=== PATIENT | male | born 1960 | race Caucasian/White ===

== ENCOUNTER → 2019-08-23 11:40 | Outpatient (CLI) | payer BC, SELFPAY ==
--- NOTE | 2019-08-23 11:42 | CA_ITS ---
APPROVED REPORT EXAM: Comprehensive 2D, Doppler, and color-flow Echocardiogram [employer]: Penny Silverio RT(R) Ht: 6 ft 0 in Wt: 233lbs BSA: 2.27 BP: 180/100 mmHg Indications: edema, hyperlipidemia, family history of HD 2D Dimensions LVOT 2.06 cm (M/F) 1.5-2.5 M-Mode Dimensions RVDd 3.02 cm (0.9-2.6) LVDd 5.84 cm (3.5-5.7) LVDs 4.35 cm (3.5-5.7) IVSd 1.17 cm (0.6-1.1) PWd 1.25 cm (0.6-1.1) EF (Teich) 49.50% FS 25.50% EDV (Teich) 169.20 mL ESV (Teich) 85.40 mL LV Diastology E/A Ratio 1.25 Mitral Valve MV A Velocity 50.00 (40-130 cm/s) Left Ventricle Left atrium is mildly enlarged, left ventricle is normal size, mild concentric left ventricular hypertrophy, visually estimated ejection fraction 55% with no regional wall motion abnormality, grade 1 diastolic dysfunction seen without tissue Doppler evidence of raise left atrial pressure. Right Ventricle Right atrium and right ventricle are normal size and contractility. Aortic Valve Aortic valve is minimally thickened and fibrosed, there is no aortic stenosis or aortic insufficiency. Mitral Valve Mitral valve is grossly normal, there is mild mitral regurgitation. Tricuspid Valve Tricuspid valve is grossly normal, there is mild tricuspid regurgitation, tricuspid regurgitation jet velocity is inadequate for calculation of the right ventricular systolic pressure. Pulmonic Valve Pulmonic valve is poorly visualized. Great Vessels Aortic root is normal size. Pericardium No significant pericardial effusion noted. Conclusion 1. Mildly enlarged left atrium, normal left ventricular size, mild concentric left ventricular hypertrophy, visually estimated ejection fraction 55% with no regional wall motion abnormality, grade 1 diastolic dysfunction seen without tissue Doppler evidence of raise left atrial pressure. 2. Mild mitral and tricuspid regurgitation. 3. No significant pericardial effusion noted. Electronically signed by : Raymond Amezcua, 08/23/2019 18:43:59
== END ==
PROVIDERS: PCP Family Medicine; Visit Provider Internal Medicine
DX: R60.0 Localized edema (principal); E78.5 Hyperlipidemia, unspecified; Z86.718 Personal history of other venous thrombosis and embolism
CPT/HCPCS: 93306

== ENCOUNTER → 2021-10-28 08:14 | Outpatient (CLI) | payer SELFPAY ==
--- NOTE | 2021-10-28 08:15 | CT_ITS ---
FINAL REPORT TECHNIQUE: Thin section axial images were obtained through the heart and coronary arteries per CT coronary calcium score protocol. This study was performed with techniques to keep radiation doses as low as reasonably achievable (ALARA). Individualized dose reduction techniques using automated exposure control or adjustment of mA and/or kV according to the patient's size were employed. CLINICAL HISTORY: eval for CAD Family history nonsmoker FINDINGS: On the axial images, there is calcification within the left anterior descending coronary artery. This gives a coronary artery calcium score of 97 based on the Agatston scale. This coronary calcium score places the patient within the 48th percentile based on age and gender. The heart is normal in size. There is no pleural or pericardial effusion. Limited evaluation of the lungs reveal no suspicious nodule. IMPRESSION: Calcium score of 97 puts the patient within the 48th percentile. Reviewed, Interpreted and Dictated by Blane Zuluaga III, MD Transcribed by Deena Motta Authenticated and [facility]
== END ==
PROVIDERS: PCP Physician Assistant; Visit Provider Physician Assistant
DX: R00.1 Bradycardia, unspecified (principal); I10 Essential (primary) hypertension; E78.2 Mixed hyperlipidemia; R60.0 Localized edema; Z86.718 Personal history of other venous thrombosis and embolism
CPT/HCPCS: 75571

== ENCOUNTER 2024-06-01 07:49 | Outpatient (CLI) | payer MEDICARE, SELFPAY ==
--- NOTE | 2024-06-01 07:53 | CA_ITS ---
FINAL REPORT CLINICAL HISTORY: post op 2 months follow up to anterior calf DVT COMPARISON: None FINDINGS: DUPLEX VENOUS SONOGRAPHY OF THE RIGHT LOWER EXTREMITY Multiple transverse and longitudinal scans were performed of the femoropopliteal deep venous system, with augmentation and compression maneuvers. HISTORY: Follow-up FINDINGS: Normal phasic flow was noted in the visualized deep venous system. No intraluminal increased echogenicity is noted to suggest thrombus. There is normal compression and augmentation of the venous structures. No abnormal venous collaterals are seen. IMPRESSION: No evidence of deep venous thrombosis of the right lower extremity. Reviewed, Interpreted and Dictated by Patria Rhodes MD Transcribed by Livia Gong Authenticated and [facility]
== END 2024-06-01 23:59 | disposition home or self-care (01) ==
LOC: RT 07:50
PROVIDERS: PCP Family Medicine; Visit Provider Physician Assistant
DX: Z86.718 Personal history of other venous thrombosis and embolism (principal); I10 Essential (primary) hypertension; E78.2 Mixed hyperlipidemia
CPT/HCPCS: 93971

== ENCOUNTER 2024-12-21 12:17 | Outpatient (CLI) | payer MEDICARE, SELFPAY ==
--- OUTSIDE RECORDS SUMMARY | 2024-09-01 05:15 | XMS_ITS | Continuity of Care Document ---
Author Organization [facility] Address [address] [place] [address] Phone Care Team Providers Care Marketing Support Coordinator Name Role Phone Maryam Peoples APRN Unavailable Unavailable Allergies, Adverse Reactions, Alerts Substance Reaction Status Criticality No Known Allergies Active No Inform ation Medications Medication Instructions Dosage Effective Dates (start - stop) Status Comments aspirin 81 mg chewable tablet chew 1 tablet by oral route every day 81 MG - Active Celebrex 200 mg capsule take 1 capsule by oral route BID - Active Lyrica 50 mg capsule take 1 capsule by oral route 2 times every day 50 MG - Active diclofenac 1 % topical gel apply 2 gram by topical route 4 times every day to the affected area(s) 2.00 gram - Active mirtazapine 30 mg tablet - Active simvastatin 40 mg tablet - Active ramipril 5 mg capsule - Active gentamicin 0.1 % topical cream - Active Procedures Procedure Date Office/outpatient visit,est, mod 2024 X-ray exam of knee, 3 views X-ray exam of knee, 3 views Postop followup visit Postop followup visit Drain Or inject major jointor bursa Postop followup visit X-ray exam of knee, 1 or2 views Postop followup visit X-ray exam of knee, 3 views Postop followup visit Arthroplasty, total knee PA Arthroplasty, Total Knee Office/outpatient visit,est, mod 2023 KO elas w/ condylar pads and joints w or w/out patellar control, pref OTS Postop followup visit Drain Or inject major jointor bursa ORTHOVISC INJ PER DOSE Postop followup visit Drain Or inject major jointor bursa Betamethasone acet 3mg & sod phosp 3mg J Dexamethasone sodium phos Office/outpatient visit,est, mod 2023 Drain Or inject major jointor bursa ORTHOVISC INJ PER DOSE Office/outpatient visit,est, mod 2023 MRI Lumbar Spine wo Contrast Office/outpatient visit,est, mod 2023 Ko elas w/ condyle pads & clara Office/outpatient visit,est, mod 2023 X-ray exam lower spine 2-3 views 2023 X-ray exam of knee, 3 views Postop followup visit Betamethasone acet 3mg & sod phosp 3mg A Dexamethasone sodium phos Drain Or inject major jointor bursa Visco 3 Postop followup visit Drain Or inject major jointor bursa Ko elas w/ condyle pads & clara HYALGAN/SUPARTZ INJ PER DOSE Postop followup visit Drain Or inject major jointor bursa Visco 3 Office/outpatient visit,est, mod 2021 X-ray exam of knee, 3 views Office/outpatient visit,est, mod 2021 MRI Lwr Ext Joint wo Contrast 2 Office/outpatient visit,est, mod 2021 X-ray exam of knee, 3 views Office/outpatient visit,est, mod 2021 X-ray exam of knee, 3 views Office/outpatient visit,est, mod 2021 Betamethasone acet 3mg & sod phosp 3mg M Dexamethasone sodium phos Drain/inject major jointor bursa 2021 Office/outpatient visit,est, mod 2021 Office/outpatient visit,est, mod 2021 Postop followup visit X-ray exam of knee, 3 views Postop followup visit Postop followup visit Postop followup visit Postop followup visit Knee arthscpy mnsctmy medial & lat Mar- Knee arthroscopy/arthroplasty 1 No Charge Office/outpatient visit,est, mod 2020 Office/outpatient visit,est, mod 2020 Office/outpatient visit,est, mod 2020 Ko elas w/ condyle pads & clara Office/outpatient visit,est, mod 2020 Dexamethasone sodium phos Drain/inject major jointor bursa 2020 Betamethasone acet 3mg & sod phosp 3mg A Office/outpatient visit,est, mod 2020 Ko elas w/ condyle pads & clara Office/outpatient visit,est, mod 2020 MRI Lwr Ext Joint wo Contrast 1 Office/outpatient visit,est, mod 2020 X-ray exam of knee, 3 views Advance Directives Directive Yes / No Effective Date File Name No Information Encounters Encounter Description Practice Location Reason(s) For Visit Diagnoses Date Provider Providers Copied on Encounter Office/outpat ient visit,est, mod [facility], [address] [place], [address], [place] tel:[phone] [place] Rt knee (chief complaint) Presence of right artificial knee joint 5 Bills Maryam. [address], [place], [place], [id number] , [place]. tel:[phone] Referring Provider: Jovi Root, [address], [place], [address] . tel:[phone] [facility], [address] [place] [address], [address], [place] tel:[phone] [place] Rt Knee (chief complaint) Presence of right artificial knee joint 5 Bills Maryam. [address], [place], [place], [id number] , [place]. tel:[phone] Referring Provider: [address], [place], [address] . tel:[phone] [facility], [address] [place] [address], [address], [place] tel:[phone] [place] No Information 5 Jose A Espana. [address], [place], [place], [id number] , [place]. tel:[phone] Referring Provider: [address], [place], [address] . tel:[phone] [facility], [address] [place] [address], [address], [place] tel:[phone] [place] Rt Knee (chief complaint) Presence of right artificial knee joint 5 Bills Maryam. [address], [id number] , [place]. tel:[phone] Referring Provider: [place], [address] . tel:[phone] [facility], [address] [place], [address], [place] tel:[phone] [place] [facility] No Information 5 Bills Maryam. [address], [place], [address] , [place]. tel:[phone] [facility], [address] [place], [address], [place] tel:[phone] [place] Rt Knee (chief complaint) Presence of right artificial knee joint 5 Bills [place]. [address], [place], [id number] , [place]. tel:[phone] Referring Provider: Jovi Root, [address], [place], [address] . tel:[phone] [facility], [address] [place], [address], [place] tel:[phone] [place] Rt Knee (chief complaint) Presence of right artificial knee joint 4 Bills [place]. [address], [place], [place], [address] , [place]. tel:[phone] Referring Provider: [address], [place], [address] . tel:[phone] [facility], [address] [place], [address], [place] tel:[phone] [place] Rt Knee (chief complaint) Presence of right artificial knee joint 4 Bills [place]. [address], [place], [address] , [place]. tel:[phone] Referring Provider: [address], [place], [address] . tel:[phone] [facility], [address] [place], [address], [place] tel:[phone] [facility] No Information 4 Jose A Espana. [address], [place], [address] , [place]. tel:[phone] Referring Provider: Jovi Root, [address], [place], [address] . tel:[phone] [facility], [facility] [address] [place], [facility], [place] tel:[phone] [facility] No Information 4 Bills Maryam. [address], [place], [place], [address] , [place]. tel:[phone] Referring Provider: Jovi Root, [address], [place], [address] . tel:[phone] Office/outpat ient visit,est, mod [facility], [facility] [address] [place], [facility], [place] tel:[phone] [place] follow up (chief complaint) Unilateral primary osteoarthrit is, right knee Feb- 4 Bills Maryam. [address], [place], [id number] , [place]. tel:[phone] Referring Provider: [address], [place], [address] . tel:[phone] [facility], [facility] [address] [place], [facility], [place] tel:[phone] [place] No Information 4 Jose A Espana. [address], [place], [place], [address] , [place]. tel:[phone] Referring Provider: [address], [place], [address] . tel:[phone] [facility], [address], [place], [facility], [place] tel:[phone] [place] follow up (chief complaint) Unilateral primary osteoarthrit is, right knee [place]-2 1-202 4 Billdelfina Francisco. [address], [place], [place], [address] , [place]. tel:[phone] Referring Provider: Maryam Claros, [address], [place], [address] . tel:[phone] [facility], [address] [place], [address], [place] tel:[phone] [place] follow up (chief complaint) Unilateral primary osteoarthrit is, right knee [place]- 4 Billdelfina Francisco. [address], [place], [place], [address] , [place]. [phone] Referring Provider: Maryam Claros, [address], [place], [address] . tel:[phone] Office/outpat ient visit,est, mod [facility], [address] [place], [address], [place] tel:[phone] [place] Unilateral primary osteoarthrit is, right kneePain in right knee [place]-0 4 Billdelfina Segoviaah. [address], [place], [place], [address] , [place]. tel:[phone] Referring Provider: Jovi Root, [address], [place], [address] . tel:[phone] Office/outpat ient visit,est, mod [facility], [address] [place], [address], [place] tel:[phone] [place] Radiculopath y, site unspecified 4 Billdelfina Francisco. [address], [place], [place], [address] , [place]. tel:[phone] Referring Provider: Jovi Root, [address], [place], [address] . tel:[phone] [facility], [address] [place], [address], [place] tel:[phone] [place] [facility] No Information 4 Jose A Espaan. [address], [place], [place], [address] , [place]. tel:[phone] Referring Provider: Jovi Root, [address], [place], [address] . tel:[phone] Office/outpat ient visit,est, [facility], [address], [place], [facility], [place] tel:[phone] [place] follow up (chief complaint) Radiculopath y, site unspecified 4 Richelle Francisco. [address], [place], [place], [address] , [place]. tel:[phone] Referring Provider: Maryam Claros, [address], [place], [address] . tel:[phone] [facility], [address] [place] [address], [facility], [place] tel:[phone] [place] No Information 4 Richelle Francisco. [address], [place], [place], [address] , [place]. tel:[phone] Referring Provider: Maryam Claros, [address], [place], [address] . tel:[phone] Office/outpat ient visit,est, [facility], [address], [place], [facility], [place] tel:[phone] [place] hip (chief complaint)E PNP (chief complaint) Pain in right knee Jul- 4 Richelle Francisco[address], [place], [place], [address] , [place]. tel:[phone] Referring Provider: Jovi Root, [address], [place], [address] . tel:[phone] [facility], [address] [place] [address], [facility], tel:[phone] [place] General orthopedic (chief complaint) Unilateral primary osteoarthrit is, right knee 3 Bills Maryam. [address], [place], [address] , [place]. tel:[phone] Referring Provider: Jovi Root, [address], [place], [address] . tel:[phone] [facility], [facility] [address] [place], [facility], tel:[phone] [place] No Information 3 Bills Maryam. [address], [place], [address] , [place]. tel:[phone] Referring Provider: Jovi Root, [address], [place], [address] . tel:[phone] [facility], [address] [place] [address], [facility], [place] tel:[phone] [place] general orthopedic (chief complaint) Pain in right knee 3 Bills Mrayam. [address], [place], [place], [address] , [place]. tel:[phone] Referring Provider: Jovi Root, [address], [place], [address] . tel:[phone] [facility], [address] [place] [address], [facility], [place] tel:[phone] [place] No Information 3 Bills Maryam. [address], [place], [place], [address] , [place]. tel:[phone] Referring Provider: Maryam Claros, [address], [place], [address] . tel:[phone] [facility], [facility] [address] [place], [facility], [place] tel:[phone] 00 [place] No Information 3 Sheila Gamaliel. [address], [place], [address] , [place]. tel:[phone] Referring Provider: Maryam Claros, [address], [place], [address] . tel:[phone] [facility], [facility] [place], [address], [place] tel:[phone] [facility] General orthopedic (chief complaint) Unilateral primary osteoarthrit is, left knee 3 Bills Maryam. [address], [place], [address] , [place]. tel:[phone] Referring Provider: Jovi Root, [address], [place], [address] . tel:[phone] [facility], [facility] [place], [address], [place] tel:[phone] [facility] No Information 3 Bills Maryam. [address], [place], [place], [address] , [place]. tel:[phone] Referring Provider: [address], [place], [address] . tel:[phone] Office/outpat ient visit,est, mod [facility], [facility] [place], [address], [place] tel:[phone] [facility] General orthopedic (chief complaint) Pain in left kneeUnsp fracture of upper end of left tibia, init for clos fx 2 Bills Maryam. [address], [place], [place], [address] , [place]. tel:[phone] Referring Provider: [address], [place], [address] . tel:[phone] Office/outpat ient visit,est, mod [facility], [facility] [place], [address], [place] tel:[phone] [facility] General orthopedic (chief complaint) Pain in left knee 2 Bills Maryam. [address], [place], [place], [address] , [place]. tel:[phone] Referring Provider: Jovi Root, [address], [place], [address] . tel:[phone] [facility], [facility] [address] [place], [facility], [place] tel:[phone] [facility] No Information 2 Jose A [place]. [address], [place], [place], [address] , [place]. tel:[phone] Referring Provider: Jovi Root, [address], [place], [address] . tel:[phone] Office/outpat ient visit,est, mod [facility], [address], [place], [facility], [place] tel:[phone] [facility] General orthopedic (chief complaint) Oth tear of medial meniscus, current injury, left knee, init 2 Bills Maryam. [address], [place], [place], [address] , [place]. tel:[phone] Referring Provider: Jovi Root, [address], [place], [address] . tel:[phone] Office/outpat ient visit,est, [facility], [facility] [place], [address], [place] tel:[phone] [facility] General orthopedic (chief complaint) Unilateral primary osteoarthrit is, right knee 2 Jose A [place]. [address], [place], [place], [address] , [place]. tel:[phone] Referring Provider: [address], [place], [address] . tel:[phone] Office/outpat ient visit,est, mod [facility], [address] [place], [address], [place] tel:[phone] [facility] General orthopedic (chief complaint) Unilateral primary osteoarthrit is, right knee 2 Bills Maryam. [address], [place], [place], [address] , [place]. tel:[phone] Referring Provider: [address], [place], [address] . tel:[phone] Office/outpat ient visit,est, mod [facility], [address] [place], [address], [place] tel:[phone] [facility] General orthopedic (chief complaint) Oth meniscus derangements , other medial meniscus, right knee Apr- 2 Bills Maryam. [address], [place], [place], [address] , [place]. tel:[phone] Referring Provider: [address], [place], [address] . tel:[phone] Office/outpat ient visit,est, mod [facility], [address] [place], [address], [place] tel:[phone] [facility] general orthopedic (chief complaint) Oth meniscus derangements , other medial meniscus, right knee Jun- 2 Bills Maryam. [address], [place], [place], [address] , [place]. tel:[phone] Referring Provider: [address], [place], [address] . tel:[phone] [facility], [address] [place], [address], [place] tel:[phone] [facility] general orthopedic (chief complaint) Oth meniscus derangements , other medial meniscus, right knee Feb- 2 Bills Maryam. [address], [address] , [place]. tel:[phone] Referring Provider: Jovi Root, [address], [place], [address] . tel:[phone] [facility], [facility] [place], [address], [place] tel:[phone] [facility] general orthopedic (chief complaint) Oth meniscus derangements , other medial meniscus, right knee 2 Bills Maryam. [address], [place], [place], [address] , [place]. tel:[phone] Referring Provider: Jovi Root, [address], [place], [address] . tel:[phone] [facility], [facility] [place], [address], [place] tel:[phone] [facility] orthopedic (chief complaint) Oth meniscus derangements , other medial meniscus, right knee 1 Bills [place]. [address], [place], [place], [address] , [place]. tel:[phone] Referring Provider: Jovi Root, [address], [place], [address] . tel:[phone] [facility], [facility] [place], [address], [place] tel:[phone] [facility] general orthopedic (chief complaint) Oth meniscus derangements , other medial meniscus, right knee 1 Bills [place]. [address], [place], [place], [address] , [place]. tel:[phone] Referring Provider: Jovi Root, [address], [place], [address] . tel:[phone] [facility], [facility] [place], [address], [place] tel:[phone] [facility] general orthopedic (chief complaint) Oth meniscus derangements , other medial meniscus, right knee 1 Richelle Francisco. [address], [place], [place], [address] , [place]. tel:[phone] Referring Provider: Jovi Root, [address], [place], [address] . tel:[phone] [facility], [address] [place], [address], [place] tel:[phone] [address] [place] [address] No Information 1 Jose A Espan[place]. [address], [place], [place], [address] , [place]. [phone] Referring Provider: Jovi Root, [address], [place], [address] . tel:[phone] [facility], [address] [place], [address], [place] tel:[phone] [facility] No Information 1 Harleysidney Magdaleno. [address], [place], [place], [address] , [place]. [phone] Referring Provider: Jovi Root, [address], [place], [address] . tel:[phone] Office/outpat ient visit,est, mod [facility], [address] [place], [address], [place] tel:[phone] [address] [place] [address] general orthopedic (chief complaint) Oth meniscus derangements , other medial meniscus, right knee 1 Jose A Espan[place]. [address], [place], [address] , [place]. [phone] Referring Provider: Jovi Root, [address], [place], [address] . tel:[phone] Office/outpat ient visit,est, mod [facility], [address] [place], [address], [place] tel:[phone] [facility] general orthopedic (chief complaint) Unilateral primary osteoarthrit is, right kneeOth meniscus derangements , other medial meniscus, right knee Oct- 1 Richelle Francisco. [address], [place], [address] , [place]. tel:[phone] Referring Provider: [address], [place], [address] . tel:[phone] Office/outpat ient visit,est, [facility], [facility] [address] [place], [facility], [place] tel:[phone] 00 [facility] general orthopedic (chief complaint) Unilateral primary osteoarthrit is, right knee Sep-0 1 Richelle Francisco. [address], [place], [place], [address] , [place]. tel:[phone] Referring Provider: [address], [place], [address] . tel:[phone] [facility], [address] [place] [address], [facility], [place] tel:[phone] [facility] No Information Sep-0 1 Richelle Francisco. [address], [place], [place], [address] , [place]. [phone] Referring Provider: [address], [place], [address] . tel:[phone] Office/outpat ient visit,est, [facility], [address] [place] [address], [facility], [place] tel:[phone] [facility] general orthopedic (chief complaint) Pain in right kneeOth meniscus derangements , other medial meniscus, right kneeEffusion , right knee Aug- 1 Richelle Francisco. [address], [place], [place], [address] , [place]. [phone] Referring Provider: [address], [place], [address] . tel:[phone] Office/outpat ient visit,est, mod [facility], [address] [place], [address], [place] tel:[phone] [facility] general orthopedic (chief complaint) Effusion, right kneePain in right knee 1 Richelle Francisco. [address], [place], [place], [address] , [place]. tel:[phone] Referring Provider: Maryam Richelle Claros, [address], [place], [address] . tel:[phone] [facility], [address] [place], [address], [place] tel:[phone] [facility] No Information 1 Fengdelfina Francisco. [address], [place], [address] , [place]. tel:[phone] Referring Provider: Maryam Richelle Claros, [address], [place], [address] . tel:[phone] Office/outpat ient visit,est, mod [facility], [address] [place], [address], [place] tel:[phone] [facility] general orthopedic (chief complaint) Effusion, right knee 1 Fengdelfina Maryam. [address], [place], [place], [address] , [place]. tel:[phone] Referring Provider: Jovi Root, [address], [place], [address] . tel:[phone] [facility], [address] [place], [address], [place] tel:[phone] [facility] No Information [address], [place], [place], [id number] , [place]. tel:[phone] Referring Provider: [address], [place], [address] . tel:[phone] Office/outpat ient visit,est, mod [facility], [address] [place], [address], [place] tel:[phone] [facility] general orthopedic (chief complaint) Oth meniscus derangements , other medial meniscus, right kneePain in right knee 1 [address], [place], [place], [id number] , [place]. [phone] Referring Provider: Jovi Root, [address], [place], [address] . tel:[phone] [facility], [address] [place], [address], [place] tel:[phone] [facility] No Information 1 [address], [place], [place], [id number] , [place]. [phone] Family History Family Member Type Diagnosis Age At Onset Mother Problem (finding) Cancer Brother Problem (finding) Cancer Mother Problem (finding) Congenital heart diseas e Payers Payer name Insurance type Covered republican ID Authoriza tion(s) Medicare [facility] [id number] AARP Supplemental CI [id number] Social History Type Description Quantity Date Captured Comments Alcohol Use Details Unknown Caffeine Use Details Unknown Tobacco Use Status No Information Smoking Status No Information Sex Male Chief Complaint And Reason For Visit From encounter dated '09/01/2024 09:15'. Rt knee (chief complaint). Description: FU Rt knee; 6 month PO Rt knee Reason For Referral Reason For Referral No Information Plan Of Treatment Date Type Action Status Appointment Jonathon Jiang BOOKED Future Order: Radiology Order MR I Knee WO Contrast ([id number]), Collected on: , Sent on: Sent History Of Present Illness Encounter Date Complaint History Of Prese nt Illness Rt knee FU Rt knee; 6 mo nth PO Rt knee Feb-20-2025 Rt Knee PO Rt Knee, sonya ochoa great. Rt Knee PO Rt Knee, vjumm don pretty good. Rt Knee PO Rt Knee, vjumm don okay but has hit a plateau. He does not seem to be doing any better or worse. Worried that his exercising is not where it should be. Rt Knee PO Rt Kneejacinto ng a lot of sensitivity of the skin and unable to really lift his leg up off of a cushion. Rt Knee PO Day 9 Rt Knee follow up FU R knee; Ortho visc didn't help- having pain and back pain- herniated discs follow up FU R knee; Ortho visc #3 follow up FU R knee; Ortho visc #2 follow up follow up follow up FU hip and back- steroids and gabapentin helped but having trouble sleeping EPNP EPNP; R knee and hip- pain [place] [address] [place] week and has progressively worsening pain hip General orthopedic FU L knee; Vi sco-3 injection #3 general orthopedic VISCO #2 - LT KNEE General orthopedic Forgot his kn ee brace today, so more sore General orthopedic FU Lt knee; i mproved General orthopedic FU L knee; st arted using crutches today General orthopedic EPNP; L knee- fell earlier in summer- improved then worsened about a week ago, trouble walking General orthopedic FU R knee; st ill having pain when he drives and going up and down stairs. He wakes in the middle of night with pain General orthopedic FU Rt knee, s cope 03/15/21. General orthopedic FU Rt knee, s cope 03/15/21. Relates it is doing much better, still taking the diclofenac sodium which seems to be helping. States he is on a waitlist for formal PT but he is doing some exercise at home. general orthopedic FU right knee . Deg MMT. SX: 03/15/21. Still having some pain sometimes. Sitting in certain positions and trouble going up and down stairs. general orthopedic PO Rt knee, s cope 03/15/21. Still having some pain about the medial aspect of the knee. He is unsure if he is doing too much or not enough. general orthopedic FU right knee deg MMT. Not too bad but still have some pain and a grinding feeling from time to time. general orthopedic PO Rt knee, s cope 03/15/21. Relates it is still pretty sore especially under the knee cap and about the medial aspect. States he is experiencing discomfort and burning pain at nighttime. general orthopedic PO Rt knee, s cope 03/15/21. Relates having some pain about the medial and inferior aspect of the knee. More of a discomfort rather than a sharp pain. general orthopedic PO Rt knee, s cope 03/15/21. Relates it is a little unstable and sore. general orthopedic FU Rt knee, h aving scope performed on 03/15/21. general orthopedic FU Rt Knee, p ain still on medial aspect under patella. general orthopedic FU Rt Knee, c ortisone injection did not help much, has pain under kneecap now and still pain on medial aspect general orthopedic follow up rig ht knee general orthopedic follow up rig ht knee general orthopedic mri results r ight knee general orthopedic he is in for right knee P!. he had a knee scope done for a torn meniscus a few years ago. he had a recent issue with losing part of his left foot. while doing rehab for that he feels like he was favoring his right knee more. Functional Status Date Functional Assessmen t No Information Instructions Date Instruction Additional Infor mation No Information Assessments Type Assessment Date No Information Patient Care Teams Name Effective Dates (start - stop) Status Members No Information
--- OUTSIDE RECORDS SUMMARY | 2024-11-09 09:40 | XMS_ITS | Encounter Summary ---
Author Organization [facility] Address [address] [place] [address] [place] [address] Phone Care Team Providers Care Upstream Biomanufacturing Technician Name Role Phone Alexander Swift MD Primary Care Provider [phone] Dominic aMrlow DPM Unavailable Reason for Visit * Reason Comments Tenderness Here for his LT foot stump ulcer check, states he has been doing yard work and may have aggrevated it a bit Follow-up Here for his LT foot stump ulcer check, states he has been doing yard work and may have aggrevated it a bit Encounter Details Date Type Department Care Team (Late st Contact Info) Description 11/09/2024 9:40 AM EDT Office Visit [facility] [address] [facility] [place] [address] Dominic Marlow, DPM [address] [facility] [place] [address] History of transmetatarsal amputation of left foot (HCC) (Primary Dx); Crushing injury of left foot, sequela; Ulcer of left foot, with fat layer exposed (HCC); Gait abnormality Social History Tobacco Use Types Packs/Day Years Used Date Smoking Tobacco: Never Smokeless Tobacco: Never Tobacco Cessation:Counseling Given: No Alcohol Use Standard Drinks/Week Comments Not Currently 0 (1 standard drink = 0.6 oz pur e alcohol) rare usage 1 to 2 a week Food Insecurities Answer Date Recorded Worried about running out of food Not on file 05/04/2023 Food Bought Not on file 05/04/2023 Housing/Utilities Answer Date Recorded Worried about losing home Not on file 2023 Stayed outside house Not on file 05/04/2023 Unable to get utilities Not on file 05/04/19 Interpersonal Safety Answer Date Record ed Feel physically or emotionally unsafe where curr ently live Not on file 05/04/2023 Harm by anyone Not on file 05/04/2023 Emotionally Harmed Not on file 05/04/2023 Transportation Answer Date Recorded Worried about transportation Not on file Sex and Gender Information Value Date Recorded Sex Assigned at Not on file Legal Sex Male 11:14 PM EDT Gender Identity Male 03/14/2019 1:16 PM EST Sexual Orientation Not on file documented as of this encounter Functional Status * Are you deaf or do you have serious difficulty hearing? Answer Date of Assessment Author Yes 05/30/2019 8:41 AM Abdirahman Martinez, Registered Nurse * Are you blind or do you have serious difficulty seeing, even when wearing glasses? Answer Date of Assessment Author No 05/30/2019 8:41 AM Abdirahman Martinez, Registered Nurse * Do you have serious difficulty walking or climbing stairs? (5 years old or older) Answer Date of Assessment Author No 05/30/2019 8:41 AM Abdirahman Martinez, Registered Nurse * Do you have difficulty dressing or bathing? (5 years old or older) Answer Date of Assessment Author No 05/30/2019 8:41 AM Abdirahman Martinez, Registered Nurse * Because of a physical, mental, or emotional condition, do you have difficulty doing errands alone such as visiting a doctor???s office or shopping? (15 years old or older) Answer Date of Assessment Author No 05/30/2019 8:41 AM Abdirahman Martinez, Registered Nurse documented as of this encounter Mental Status * Because of a physical, mental, or emotional condition, do you have serious difficulty concentrating, remembering, or making decisions? (5 years old or older) Answer Entry Date Author No 05/30/2019 8:41 AM Abdirahman Martinez, Registered Nurse documented in this encounter Progress Notes * Dominic Marlow DPM - 11/09/2024 9:40 AM EDT Images from the original note were not included. Dr. Dominic Marlow DPM [facility] [address] [place] [id number] Patient Name: Jonathon Jiang Age: [age] year old Date of : 1960 Sex: male Occupation: Data Unavailable CHIEF COMPLAINT Chief Complaint Patient presents with Left Foot - Tenderness, Follow-up Here for his LT foot stump ulcer check, states he has been doing yard work and may have aggrevated it a bit HISTORY OF PRESENT ILLNESS Jonathon Jiang 64 year old male is here today for ulcer evaluation and treatment. Patient follow-up for ulcer left stump of foot. Patient otherwise is doing well and has no complaints. He is dealing with his custom brace with [employer] which is in process. ALLERGIES No Known Allergies HOME MEDICATIONS Prior to Admission medications Medication Sig Start Date End Date Taking? Authorizing Provider gentamicin (GARAMYCIN) 0.1 % CREA Apply 1 g topically 2 (two) times daily. Apply to open wound twice daily with dry sterile dressing/bandaid. 07/22/23 Yes Dominic Marlow DPM gentamicin (GARAMYCIN) 0.1 % OINT Apply topically daily. 02/04/23 Yes Dominic Marlow DPM gentamicin (GARAMYCIN) 0.1 % CREA Apply 1 g topically 2 (two) times daily. Apply to open wound twice daily with dry sterile dressing/bandaid. 05/09/20 Yes Dominic Marlow DPM ramipril (ALTACE) 5 MG CAPS Take 5 mg by mouth daily. 11/15/19 Yes HISTORICAL MED ASPIRIN ADULT LOW STRENGTH 81 MG TBEC Take 81 mg by mouth daily. 11/15/19 Yes HISTORICAL MED simvastatin (ZOCOR) 20 MG TABS Take 20 mg by mouth at bedtime. Yes HISTORICAL MED rivaroxaban (XARELTO STARTER PACK) 15 & 20 mg tablet Take 15 mg by mouth TWICE DAILY x 21 days,then take 20 mg by mouth DAILY. Take with FOOD. 04/14/19 Yes Nicanor Wise, DO gabapentin (NEURONTIN) 100 MG CAPS Take 100 mg by mouth daily. Yes HISTORICAL MED lidocaine (XYLOCAINE) 1 % SOLN 5 mLs by Other route as needed (For wound care.). 01/17/19 Yes Rommel Markham MD atorvastatin (LIPITOR) 20 MG TABS Take 10 mg by mouth nightly. Patient takes 10 mg = 1/2 of 20 mg tab Yes HISTORICAL MED mirtazapine (REMERON) 15 MG TABS Take 15 mg by mouth at bedtime. Yes HISTORICAL MED acetaminophen (TYLENOL) 325 MG TABS Take 650 mg by mouth every 6 (six) hours as needed for Mild Pain (1-3). Yes HISTORICAL MED calcium carbonate (TUMS) 500 MG CHEW 1,000 mg by Chewable route every 4 (four) hours as needed (Heartburn/Indigestion). Yes HISTORICAL MED PAST MEDICAL HISTORY Past Medical History: Diagnosis Date Hypercholesterolemia PAST SURGICAL HISTORY Past Surgical History: Procedure Laterality Date AMPUTATION Left fingertips removed second finger ARTHROSCOPY KNEE Right COLONOSCOPY FOOT AMPUTATION Left 12/2018 inside of left foot and all toes TONSILLECTOMY SOCIAL HISTORY Social History Occupational History Not on file Tobacco Use Smoking status: Never Smokeless tobacco: Never Substance and Sexual Activity Alcohol use: Not Currently Comment: rare usage 1 to 2 a week Drug use: Never Sexual activity: Yes Partners: Female control/protection: None FAMILY HISTORY History reviewed. No pertinent family history. REVIEW OF SYSTEMS All systems were reviewed today and were negative except as indicated on the ROS form attached to this encounter (or located in the Media tab). . EXAM: Vital Signs: There were no vitals taken for this visit. Mental Status: Patient is oriented to time, place, and person. The patient's mood and affect are appropriate. General appearance: healthy, alert, no distress. Lower Extremities: Joints are without tenderness, effusion, erythema or major deformity. Lymphatics: The lymphatic exam bilaterally reveals all areas to be without enlargement or induration. Skin: Skin color, texture, turgor normal. No rashes. Open wound measuring 4 x 4 mm down to subcu tissue along the plantar medial aspect of the left stump. No signs of any acute infection. Vascular: PT/DP pulses are palpable. Digits are pink and warm with brisk capillary refill. Neuro:Protective sensation is absent using the 5.07 [place] [employer] Monofilament Wire to all locations bilateral feet. Ortho: no joint tenderness, synovitis, or restriction of motion, no muscle tenderness, no edema. Range of motion and muscle strength to dorsiflexors, plantarflexors, inverters, and everters are limited to bilateral extremities. Left TMA XRay(s): None No results found for this or any previous visit (from the past 26 weeks). No results found. IMPRESSION: ICD-10-CM 1. History of transmetatarsal amputation of left foot ([facility]) Z89.432 2. Crushing injury of left foot, sequela S97.82XS 3. Ulcer of left foot, with fat layer exposed ([facility]) L97.522 4. Gait abnormality R26.9 PLAN: 1. Ulcer left stump of foot was debrided, cleansed and wrapped. Continue bracing for triplanar stability 2. Wound care daily. Strict off-loading recommended. 3. Follow-up 3 months PROCEDURE: The site was prepped and an excisional debridement was performed of the neuropathic ulcer using a dermal loop curette down to and including the subcutaneous tissue to stimulate healing. When I had completed the debridement, the ulcer measured 4 x 4 mm. Healthy bleeding tissue was noted. The ulcer did not undermine. The wound was cleansed, wound care was applied with dry sterile dressing. Patient tolerated procedure well without complications. Encounter Orders: No orders of the defined types were placed in this encounter. Follow-up: Return in about 3 months (around 02/09/2025). Dominic Marlow DPM 11/09/2024 Please note that some or all of this record was generated using voice recognition software. If there are any questions about the content of this document, please contact the author as some errors in show girl may have occurred. documented in this encounter Plan of Treatment Upcoming Encounters Date Type Department Care Team (Late st Contact Info) Description 02/08/2025 9:20 AM EDT Office Visit [facility] [address] [place] [address] Dominic Marlow DPM [address] [facility] [place], [place] [id number] documented as of this encounter Visit Diagnoses Diagnosis History of transmetatarsal amputation of left foot (HCC)- Primary Crushing injury of left foot, sequela Ulcer of left foot, with fat layer exposed (HCC) Gait abnormality Abnormality of gait documented in this encounter Care Teams Upstream Biomanufacturing Technician Relationship Specialty Start Date End Date Alexander Swift MD PCP - General Family Medicine 12/10/18 Dominic Marlow DPM [address] [place] [address] Attending Physician Podiatry 05/18/23 documented as of this encounter
--- OUTSIDE RECORDS SUMMARY | 2024-12-21 12:21 | XMS_ITS | Encounter Summary ---
Author Organization [facility] Address [address] [place] [address] [place] [address] Phone Care Team Providers Care Decorating Supervisor Name Role Phone Alexander Swift MD Primary Care Provider [phone]- [phone] Dominic Marlow DPM Unavailable Reason for Referral * Consultation (Routine) - Pending Review Specialty Diagnoses / Procedures Referred By Shi rubi Referred To Contact Diagnoses History of transmetatarsal amputation of left foot (HCC) Gait abnormality Crushing injury of left foot, sequela Ulcer of left foot, with fat layer exposed (HCC) Pre-ulcerative calluses Dominic Marlow DPM Phone: tel: fax: Referral ID Status Reason Start Date Expiration Date Visits Requested Visits Authorized [id number] Pending Review Specialty Services Required 4 02/28/2025 1 1 Scheduling Instructions [employer] [address] [place], [place] [address] [facility] [address], [place], [place] [address] Comments Rx: 1 molded custom AFO left lower extremity with forefoot filler Encounter Details Date Type Department Care Team (Late st Contact Info) Description 02/29/2024 Orders Only [place] [address] [place] [id number] Dominic Marlow, MIKOM [address] [place] [address] History of transmetatarsal amputation of left foot (HCC) (Primary Dx); Gait abnormality; Crushing injury of left lower leg, subsequent encounter; Crushing injury of left foot, sequela; Ulcer of left foot, with fat layer exposed (HCC); Pre-ulcerative calluses Social History Tobacco Use Types Packs/Day Years Used Date Smoking Tobacco: Never Smokeless Tobacco: Never Alcohol Use Standard Drinks/Week Comments Not Currently [...] Martinez, Registered Nurse documented in this encounter Plan of Treatment Upcoming Encounters Date Type Department Care Team (Late st Contact Info) Description 02/08/2025 9:20 AM EDT Office Visit [facility] [address] [place] [address] Dominic Marlow DPM [address] [facility] [place] [address] Scheduled Referrals Name Type Priority Associated Diagnoses Orde r Schedule AMB REFERRAL TO ORTHOTICS Outpatient Referral Routine History of transmetatarsal amputation of left foot (HCC) Gait abnormality Crushing injury of left foot, sequela Ulcer of left foot, with fat layer exposed (HCC) Pre-ulcerative calluses Expected: 03/01/2024 (Approximate), Expires: 02/28/2025 documented as of this encounter Visit Diagnoses Diagnosis History of transmetatarsal amputation of left foot (HCC)- Primary Gait abnormality Abnormality of gait Crushing injury of left lower leg, subsequent encounter Crushing injury of left foot, sequela Ulcer of left foot, with fat layer exposed (HCC) Pre-ulcerative calluses Corns and callosities documented in this encounter Care Teams Decorating Supervisor Relationship Specialty Start Date End Date Alexander Swift MD PCP - General Family Medicine 12/10/18 Dominic Marlow DPM [address] [place] [address] Attending Physician Podiatry 05/18/23 documented as of this encounter
--- OUTSIDE RECORDS SUMMARY | 2024-12-21 12:21 | XMS_ITS | Clinical Summary ---
Author Organization [facility] Address [address] [place] [address] Phone Care Team Providers Care Supervisor Fusing Room Name Role Phone Alexander Swift MD Primary Care Provider [phone] Dominic Marlow DPM Unavailable Allergies No known active allergies Medications atorvastatin (LIPITOR) 20 MG TABS Take 10 mg by mouth nightly. Patient takes 10 mg = 1/2 of 20 mg tab Active mirtazapine (REMERON) 15 MG TABS Take 15 mg by mouth at bedtime. Active acetaminophen (TYLENOL) 325 MG TABS Take 650 mg by mouth every 6 (six) hours as needed for Mild Pain (1-3). Active calcium carbonate (TUMS) 500 MG CHEW 1,000 mg by Chewable route every 4 (four) hours as needed (Heartburn/Ind igestion). Active lidocaine (XYLOCAINE) 1 % SOLN 5 mLs by Other route as needed (For wound care.). 0 9 Active gabapentin (NEURONTIN) 100 MG CAPS Take 100 mg by mouth daily. Active rivaroxaban (XARELTO STARTER PACK) 15 & 20 mg tablet Take 15 mg by mouth TWICE DAILY x 21 days, then take 20 mg by mouth DAILY. Take with FOOD. 51 tablet 0 Active simvastatin (ZOCOR) 20 MG TABS Take 20 mg by mouth at bedtime. Active ramipril (ALTACE) 5 MG CAPS Take 5 mg by mouth daily. 0 Active ASPIRIN ADULT LOW STRENGTH 81 MG TBEC Take 81 mg by mouth daily. 0 Active gentamicin (GARAMYCIN) 0.1 % CREA Apply 1 g topically 2 (two) times daily. Apply to open wound twice daily with dry sterile dressing/thomas id. 30 g 2 1 Active gentamicin (GARAMYCIN) 0.1 % OINT Apply topically daily. 30 g 2 3 Active gentamicin (GARAMYCIN) 0.1 % CREA Apply 1 g topically 2 (two) times daily. Apply to open wound twice daily with dry sterile dressing/thomas id. 15 g 3 4 Active Active Problems Problem Noted Date Diagnosed Date Ulcer of left foot, with fat layer exposed 02/04 Pre-ulcerative calluses 10/22/2022 Ulcer of left foot, with fat layer exposed 03/07 Chronic foot pain, left 12/07/2019 Muscle weakness of lower extremity 12/07/2019 Gait abnormality 12/07/2019 History of transmetatarsal amputation of left fo ot 12/07/2019 Preoperative examination 01/09/2019 Other hyperlipidemia 12/10/2018 Cellulitis 12/10/2018 Crush injury 12/10/2018 Chronic ulcer of great toe o f left foot with necrosis of muscle 12/10/2018 Non-pressure chronic ulcer o f other part of right foot with necrosis of muscle Crushing injury of right knee including lower le g Gangrene of foot Crushing injury of ankle and foot, initial encou nter Left foot infection Abscess of left foot Crushing injury of right lower leg, initial enco unter Crush injury of left foot Equinus contracture of left ankle Non-pressure chronic ulcer o f other part of left foot with bone involvement without evidence of necrosis Non-pressure chronic ulcer o f other part of left foot with muscle involvement without evidence of necrosis Crushing injury of left lower leg, subsequent en counter Acute embolism and thrombosi s of other specified deep vein of left lower extremity Encounter for surgical after care following surgery on the skin and subcutaneous tissue Venous insufficiency (chronic) (peripheral) Encounters Date Type Department Care Team Description 11/09/2024 9:40 AM EDT Office Visit [facility] [place] [address] [place] [address] Dominic Marlow DPM History of transmetatarsal amputation of left foot (HCC) (Primary Dx); Crushing injury of left foot, sequela; Ulcer of left foot, with fat layer exposed (HCC); Gait abnormality from Last 3 Months Immunizations Immunization Administration Dates Next Due Influenza Vaccine, Inactivated, Quadrivalent PF 01/09/2019,12/15/2018() Social History Tobacco Use Types Packs/Day Years [...] PM EST Sexual Orientation Not on file Last Filed Vital Signs Vital Sign Reading Time Taken Comments Blood Pressure 141/91 06/10/2019 10:00 AM EST Pulse 66 06/10/2019 10:00 AM EST Temperature 36.6 C (97.9 F) 06/10/2019 10:00 AM EST Respiratory Rate 18 06/10/2019 10:00 AM EST Oxygen Saturation 94% 06/10/2019 10:00 AM EST Inhaled Oxygen Concentration - - Weight 102.1 kg (225 lb) 06/06/2020 8:11 AM EST Height 182.9 cm (6') 06/06/2020 8:11 AM EST Body Mass Index 30.52 06/06/2020 8:11 AM EST Plan of Treatment Upcoming Encounters Date Type Department Care Team (Late st Contact Info) Description 02/08/2025 9:20 AM EDT Office Visit [facility] [place] [address] [place] [address] Dominic Marlow DPM [address] [place] [address] Health Maintenance Due Date Last Done Comments Hepatitis C Screening 1960 DTap,Tdap,and Td (1 - Tdap) 1969 Colonoscopy 2003 PSA YEARLY 01/30/2008 Pneumococcal 50+ (1 of 1 - PCV) 01/30/2008 Shingrix (#1) 01/30/2008 Influenza Vaccine (#1) 2024 01/09/2019 RSV Vaccine (60+ or ) (1 - 1-dose 75+ series) 2033 HPV Aged Out No longer eligi ble based on patient's age to complete this topic Meningococcal conjugate lorene nt 4 (MCV4) Aged Out No longer eligible b ased on patient's age to complete this topic RSV Immunization (<20 months) Aged Out No longer eligible based on patient's age to complete this topic Medical Devices Implanted Type Area Manager Of Application Development Device Identifier Shelf Expiration Date Model / Serial / Lot Membrane Reg Clarix [id number] 6.0x3.0 - [id number] Implanted:Qty: 1 on 03/14/2019 by Dominic Marlow DPM at [facility] Graft Left: Foot Theraskin Implanted:Qty: 1 on 01/10/2019 by Dominic Marlow DPM at [facility] Left: Foot LIFENET 09/12/2022 [id number] / [id number] / Theraskin Implanted:Qty: 1 on 01/10/2019 by Dominic Marlow DPM at [facility] Left: Foot LIFENET 04/26/2021 [id number] / [id number] / Theraskin Implanted:Qty: 1 on 03/14/2019 by Dominic Marlow DPM at [facility] Left: Foot LIFENET 09/12/2022 [id number] / [id number] / Insurance MEDICARE on file [employer] MCR SUPPLEMENT Advance Directives Documents on File Type Date Recorded Patient Concrete Pump Operator Expl anation Advance Directives(Healthcar e Power of Ecg Technician)/Living Will/MOLST 07/13/2019 7:20 AM * Full Code (Latest Code Status on File) Date Activated Date Inactivated Comments 01/18/2019 1:22 AM 01/21/2019 9:24 PM * Full Code Date Activated Date Inactivated Comments 01/09/2019 1:08 PM 01/17/2019 10:44 PM * Full Code Date Activated Date Inactivated Comments 12/21/2018 9:30 PM 01/09/2019 11:52 AM * Full Code Date Activated Date Inactivated Comments 12/10/2018 6:11 PM 12/21/2018 8:08 PM Care Teams Supervisor Fusing Room Relationship Specialty Start Date End Date Alexander Swift MD PCP - General Family Medicine 12/10/18 Dominic Marlow DPM [address] [place] [address] Attending Physician Podiatry 05/18/23
--- OUTSIDE RECORDS SUMMARY | 2024-12-21 12:21 | XMS_ITS | Continuity of Care Document ---
Author Organization [facility] S Address [address] [place] [address] Phone Care Team Providers Care Disability Liaison Officer Name Role Phone Alexander Swift Primary Care Provider [phone] Encounters Date Type Department Care Team Description 03/19/2024 Travel 03/19/2024 1:19 PM EST - 03/19/2024 2:18 PM EST Emergency [facility] [address] [place] [address] Lisa Cornejo MD Acute deep vein thrombosis (DVT) of tibial vein of right lower extremity (HCC) (Primary Dx) Discharge Disposition: Home or Self Care 03/19/2024 Telephone [facility] Nurse Now [address] [place] [phone] Natty Barron RN Results 03/18/2024 9:40 AM EST - 03/18/2024 11:59 PM EST Hospital Encounter [facility] [address] [place] [address] Jovi Naranjo MD Right leg swelling Discharge Disposition: Home or Self Care 03/15/2024 9:23 AM EST - 03/15/2024 11:59 PM EST Hospital Encounter [facility] [address] [place] [address] Jovi Naranjo MD Discharge Disposition: Home or Self Care 03/15/2024 8:45 AM EST Ancillary Procedure [facility] [address] [place] [address] Jovi Naranjo MD 03/15/2024 8:40 AM EST Ancillary Procedure [facility] [address] [place] [address] Jovi Naranjo MD 03/15/2024 11:30 AM EST - 03/15/2024 1:35 PM EST Surgery [facility] [address] [place] [address] Jovi Naranjo MD ARTHROPLASTY, KNEE, TOTAL, OPEN 03/15/2024 11:28 AM EST Anesthesia Event [facility] [address] [place] [address] Nasim Wallis, Kristie Lewis, STEAM FINISHER 03/15/2024 8:34 AM EST - 03/15/2024 4:47 PM EST Hospital Encounter [facility] [address] [place] [address] Jovi Naranjo MD Discharge Disposition: Home or Self Care 02/29/2024 Travel 02/29/2024 7:38 AM EST - 02/29/2024 11:59 PM EST Hospital Encounter [facility] PRE-ADMIT TESTING [facility] [place] [address] Preop testing (Primary Dx); Hypertension, unspecified type; Osteoarthrosis, localized, primary, knee, right Discharge Disposition: Home or Self Care 01/04/2024 11:06 AM EDT - 01/04/2024 2:17 PM EDT Emergency [facility] [place] [address] Sandra Myers MD Groin pain, left (Primary Dx); Left lower quadrant abdominal pain; Acute left-sided low back pain with left-sided sciatica Discharge Disposition: Home or Self Care 06/25/2023 Travel 06/25/2023 12:08 PM EDT - 06/25/2023 1:41 PM EDT Emergency [facility] [place] [address] Ernesto Krause MD Acute anterior epistaxis (Primary Dx); Right-sided epistaxis Discharge Disposition: Home or Self Care 03/15/2021 Travel 03/15/2021 11:25 AM EST - 03/15/2021 12:10 PM EST Surgery [facility] [address] [place] [address] Jovi Naranjo MD KNEE ARTHROSCOPY MENISCECTOMY/REPAIR (ALSO COVERS ARTHROSCOPIC INCISION AND DRAINAGE/DEBRIDEMENT ) 03/15/2021 11:07 AM EST Anesthesia Event [facility] [address] [place] [address] Ruddy Pearl IV, MD Roman, Brion W, MD 03/15/2021 9:54 AM EST - 03/15/2021 12:54 PM EST Hospital Encounter [facility] [address] [place] [address] Jovi Naranjo MD Discharge Disposition: Home or Self Care 03/11/2021 Orders Only [facility] Anesthesia [address] [place] [address] Gusatvo Bernard MD Preop testing (Primary Dx) 03/11/2021 Travel 03/11/2021 8:23 AM EST - 03/11/2021 11:59 PM EST Hospital Encounter [facility] [address] [place] [address] Covid19, [facility] Pre-op testing; Encounter for laboratory testing for COVID-19 virus Discharge Disposition: Home or Self Care 03/06/2021 Travel 01/16/2021 Orders Only Adult Med [address] [place] [address] [address] [place] [id number] Jorge Treviño MA Tear of medial meniscus of right knee, current, unspecified tear type, subsequent encounter (Primary Dx) 03/23/2018 2:05 PM EST - 03/23/2018 2:50 PM EST Surgery [facility] [address] [place] [address] Jovi Naranjo MD KNEE ARTHROSCOPY MENISCECTOMY/REPAIR (ALSO COVERS ARTHROSCOPIC INCISION AND DRAINAGE/DEBRIDEMENT ) 03/23/2018 2:27 PM EST Anesthesia Event [facility] [address] [place] [address] Gustavo Bernard MD Nayak, Prashant, MD 03/23/2018 12:33 PM EST - 03/23/2018 4:25 PM EST Hospital Encounter [facility] [address] [facility] [address] [place] [address] Jovi Naranjo MD Discharge Disposition: Home or Self Care 08/28/2017 1:30 PM EDT Office Visit [facility] [address] [facility] [address] [place] [address] Gamaliel Brush MD Spigelian hernia (Primary Dx); High cholesterol; Insomnia, unspecified type Allergies No known active allergies Medications mirtazapine (REMERON) 30 mg Oral Tablet Take 1 Tab by mouth nightly. Patient takes one half tab daily 5 8 Active simvastatin (ZOCOR) 40 mg Oral Tablet Take 1 Tab by mouth nightly. Take one half tab daily 5 8 Active acetaminophen 325 mg Oral Tab Take 650 mg by mouth every 4 hours as needed. Active aspirin 81 mg Oral Tablet, Delayed Release (E.C.) Take 81 mg by mouth nightly. 1 Active calcium carbonate (TUMS) 200 mg calcium (500 mg) Oral Tablet, Chewable Take 1,000 mg by mouth daily as needed. Active ramipriL (ALTACE) 5 mg Oral Capsule Take 5 mg by mouth nightly. 1 Active oxyCODONE (ROXICODONE) 5 mg Oral Tablet Take 1-2 Tablets by mouth every 4 hours as needed for Acute Pain (R52). 30 Tablet 1 Active Additional Information Patient not taking.Reason: Therapy Completed, Reported on 02/29/2024 lisinopriL-hydr ochlorothiazide (PRINZIDE;ZESTO RETIC) 20-12.5 mg Oral Tablet Take 1 Tablet by mouth daily. 1/2 tab once daily in A.m. Active traMADoL (ULTRAM) 50 mg Oral Tablet Take 1 Tablet by mouth every 6 hours. 40 Tablet 2 03/15/2024 3:19 PM EST 4 Active oxyCODONE-aceta minophen (PERCOCET) 5-325 mg Oral Tablet Take 1-2 Tablets by mouth every 4 hours. Take every 4-6 hours as needed 40 Tablet 03/15/2024 3:19 PM EST 4 Active apixaban 5 mg (74 tabs) Oral Tablets, Dose Pack Take as directed on package 74 Tablet 03/19/2024 12:00 AM EST 4 Active Active Problems Problem Noted Date Diagnosed Date Tear of medial meniscus of right knee, current 1 Overview (01/16/2021): Added automatically from request for surgery [id number] High cholesterol 08/28/2017 Insomnia 08/28/2017 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 Family History Medical History Relation Name Comments ALS Father Heart Attack Mother Anesth Problems Neg Hx Relation Name Status Comments Father Mother Social History Smoking Status as of 12/21/2024 Tobacco Use Types Packs/Day Years Used Date Smoking Tobacco: Never Assessed Sex and Gender Information Value Date Recorded Sex Assigned at Not on file Legal Sex Male 5:07 AM EDT Gender Identity Not on file Sexual Orientation Not on file Last Filed Vital Signs Vital Sign Reading Time Taken Comments Blood Pressure 111/76 03/19/2024 1:19 PM EST Pulse 99 03/19/2024 1:19 PM EST Temperature 36.6 C (97.9 F) 03/19/2024 1:19 PM EST Respiratory Rate 20 03/19/2024 1:19 PM EST Oxygen Saturation 97% 03/19/2024 1:19 PM EST Inhaled Oxygen Concentration - - Weight 98.8 kg (217 lb 14.4 oz) 03/15/2024 9:07 AM EST Height 180.3 cm (5' 11 ) 03/15/2024 9:07 AM EST Body Mass Index 30.39 03/15/2024 9:07 AM EST Plan of Treatment Not on file Medical Devices Implanted Type Area Formal Service Waiter Device Identifier Shelf Expiration Date Model / Serial / Lot Cement Refobacin 1x40 Gm Hvisc Bn Gent Lf - [id number] Implanted:Qty : 1 on 03/15/2024 by Jovi Naranjo MD at [facility] Right: Knee SETH:SETH [id number] 05/13/2026 [id number] / / [id number] Stem Tib Exten 14mm Persn Str Tapr Lt Kn - [id number] Implanted:Qty : 1 on 03/15/2024 by Jovi Naranjo MD at [facility] Right: Knee SETH:SETH [id number] 02/12/2034 [id number] / / [id number] Patlr 38x9.5mm Desmond Persn Pe Yanique-E Ps Kn - [id number] Implanted:Qty : 1 on 03/15/2024 by Jovi Naarnjo MD at [facility] Right: Knee SETH:SETH 05/25/2028 [id number] / / [id number] Comp Fem Sz9 Std Persn Rt Kn Ps Desmond Cocr Por - [id number] Implanted:Qty : 1 on 03/15/2024 by Jovi Naranjo MD at [facility] Right: Knee SETH:SETH 10/31/2033 [id number] / / [id number] Baseplate Tib Sz-G Stm Rt Kn Desmond Persn Vera Tiv Rohan 5d - [id number] Implanted:Qty : 1 on 03/15/2024 by Jovi Naranjo MD at [facility] Right: Knee SETH:SETH [id number] 12/18/2033 [id number] / / [id number] Liner Tib Sz Gh/6-9 12mm Persn Rt Kn Art Ps Fx Bear Yanique-E - [id number] Implanted:Qty : 1 on 03/15/2024 by Jovi Naranjo MD at [facility] Right: Knee SETH:SETH [id number] 07/29/2028 [id number] / / [id number] Procedures Procedure Name Priority Date/Time Associated Diagnosis Comments VA US LOWER EXTREMITY VENOUS RIGHT STAT 03/18/2024 11:12 AM EST Right leg swelling INTRAOP AIRWAY PLACEMENT Routine 03/15/2024 11:33 AM EST MA ARTHRP KNE CONDYLE&PLATU MEDIAL&LAT COMPARTMENTS 03/15/2024 11:28 AM EST Osteoarthrosis, localized, primary, knee, right Special Needs SETH, REP NOTIFIEDsk PERIPHERAL BLOCK Routine 03/15/2024 10:33 AM EST US ANES GUIDANCE FOR NERVE BLOCK STAT 03/15/2024 9:23 AM EST US ANES GUIDANCE FOR NERVE BLOCK STAT 03/15/2024 8:40 AM EST US ANES GUIDANCE FOR NERVE BLOCK STAT 03/15/2024 8:39 AM EST CBC WITH DIFF Routine 02/29/2024 8:43 AM EST Preop testing Osteoarthrosis, localized, primary, knee, right CT ABD PEL ED FAST W CONTRAST STAT 01/04/2024 1:05 PM EDT URINALYSIS REFLEX STAT 01/04/2024 12:14 PM EDT UA W/REFLEX TO CULTURE STAT 01/04/2024 12:14 PM EDT EXTRA CATHERINE URINE CX STAT 01/04/2024 12:14 PM EDT COMPREHENSIVE METABOLIC PANEL STAT 01/04/2024 11:39 AM EDT CBC WITH DIFF STAT 01/04/2024 11:39 AM EDT SCANNED RHYTHM STRIPS 03/18/2021 10:15 PM EST INTRAOP AIRWAY PLACEMENT Routine 03/15/2021 11:19 AM EST KNEE ARTHROSCOPY MENISCECTOMY/REPAIR (ALSO COVERS ARTHROSCOPIC INCISION AND DRAINAGE/DEBRIDEMENT ) 03/15/2021 11:09 AM EST Tear of medial meniscus of right knee, current, unspecified tear type, subsequent encounter CORONAVIRUS 2019 Routine 03/11/2021 8:14 AM EST Pre-op testing Encounter for laboratory testing for COVID-19 virus SCANNED RHYTHM STRIPS 03/25/2018 3:01 PM EST INTRAOP AIRWAY PLACEMENT Routine 03/23/2018 2:38 PM EST KNEE ARTHROSCOPY MENISCECTOMY/REPAIR (ALSO COVERS ARTHROSCOPIC INCISION AND DRAINAGE/DEBRIDEMENT ) 03/23/2018 2:29 PM EST Acute medial meniscus tear of right knee, subsequent encounter XR CHEST PA AND LATERAL Routine 05/31/2012 9:52 AM EST Pneumonia Results * VA US LOWER EXTREMITY VENOUS RIGHT (03/18/2024 11:12 AM EST) Anatomical Region Laterality Modality Vascular, Thigh, Leg Vascular Im aging 03/18/2024 10:2 1 AM EST Impressions 03/18/2024 6:41 PM EST Conclusions * There is isolated acute deep vein thrombosis in the right (x1) mid posterior tibial vein. * No other evidence of deep vein thrombosis identified in the right lower extremity. * No evidence of superficial vein thrombosis identified in the right lower extremity. * No evidence of thrombosis is noted in the contralateral left common femoral vein. Narrative Procedure Note Jr Brunner MD - 03/18/2024 IMPRESSION Conclusions * There is isolated acute deep vein thrombosis in the right (x1) mid posterior tibial vein. * No other evidence of deep vein thrombosis identified in the rightlower extremity. * No evidence of superficial vein thrombosis identified in the rightlower extremity. * No evidence of thrombosis is noted in the contralateral left common femoral vein. Jovi Naranjo MD G VASCULAR ORDERABLES Final R esult * INTRAOP AIRWAY PLACEMENT (03/15/2024 11:33 AM EST) Narrative [facility] - 03/15/2024 11:33 AM EST Citlaly Bashir CRNA 03/15/2024 11:44 AM Intraop Airway Placement: Date/Time: 03/15/2024 11:33 AM Induction type: IV Mask size: Standard adult Pre-Oxygenation: BMI guided pre-O2 Mask ventilation: Easy mask ventilation Airway type: LMA Topical Anesthetic/Lubricant: Lubricant jelly Airway location: Oral Device size: 4 Measured from: Lips Placement verified: Auscultation, End tidal CO2 and Symmetric chest wall motion Condition: Atraumatic Insertion attempts: 1 Title: GROUP SALES COORDINATOR us Nasim Wallis DO MA ANESTHESIA Final Result Performing Organization Address [facility] Co de Phone Number [facility] [address] [place] [address] * Peripheral Block by Anesthesia (03/15/2024 10:33 AM EST) Narrative [facility] - 03/15/2024 10:33 AM EST Nasim Wallis DO 03/15/2024 10:36 AM Peripheral Block by Anesthesia Procedure Date/Time: 03/15/2024 10:33 AM Patient location during procedure: pre-op Reason for block: at surgeon's request and post-op pain management Staff and Pre-procedure checks Anesthesiologist: Nasim Wallis DO Performed: anesthesiologist Preanesthetic Checklist: Allergies confirmed, Block plan confirmed, Necessary block equipment present, Supplemental O2 applied, if needed, Anticoagulant confirmed, Block site marked, Patient identified- 2 criteria, Surgical procedure consent verified, Aseptic technique used, Drug/solution labeled, Resuscitaion equipment available, GIUSEPPE recommended monitors applied, IV access functioning, Sedation given, if needed and Resuscitation equipment available Immediate perianesthetic assessment completed: Yes Patient position: Prep: Chloraprep Monitoring: BP, EKG, O2 Sat and Mental status assessed Position: Peripheral Block Block type: Adductor Canal Block Laterality: Right Injection technique: single-shot Medication(s) Administered: Dexamethasone (DECADRON) and Bupivacaine (MARCAINE) 0.5% Needle Needle type: Stimuplex Needle size: 20Gx4 Nerve localization: ultrasound guidance (Adductor Canal block- Sartorius and Vastus Medialis muscle, Femoral artery and Saphenous nerve are identified; the tip of the needle and spread of the local anesthetic around the Saphenous nerve are visualized. Ultrasound image documentation is attached/scanned in [employer] chart. No anatomical pathology noted during block placement.) Ultrasound probe: linear Ultrasound needle approach: in-plane Assessment Block success: complete Heart rate change: no Blood aspirated: no Paresthesia pain: none Resistance on injection: normal Intermittent incremental injection LA at 5ml Ultrasound Image of the block is attached/scanned to the epic chart. Nasim Wallis DO ANESTHESIA ORDERABLES Final R esult Performing Organization Address [facility] Co de Phone Number [facility] [address] [place] [phone] * US ANES GUIDANCE FOR NERVE BLOCK (03/15/2024 9:23 AM EST) Only the most recent of3 resultswithin the time period is included. Narrative Genericuser, Audit - 03/15/2024 9:23 AM EST Ultrasound guided nerve block performed by Anesthesiologist The study image(s) are for reference only and will not be interpreted by a Radiologist. Refer to the Anesthesia procedure note for image description and procedure details. us Jovi Naranjo MD IMG US ORDERABLES Final Result * (ABNORMAL) CBC WITH DIFF (02/29/2024 8:43 AM EST) Only the most recent of2 resultswithin the time period is included. WBC 5.9 3.7 - 10.3 x10(3)/mcL 02/29/2024 9:09 AM EST [facility] RBC 4.45(L) 4.60 - 6.10 x10(6)/mcL 02/29/2024 9:09 AM EST [facility] Hgb 13.4(L) 13.7 - 17.5 g/dL 02/29/2024 9:09 AM EST [facility] Hct 40.2 40.0 - 51.0 % 02/29/2024 9:09 AM EST [facility] MCV 90.3 80.0 - 100.0 fL 02/29/2024 9:09 AM EST [facility] MCH 30.1 26.0 - 34.0 pg 02/29/2024 9:09 AM EST [facility] MCHC 33.3 30.7 - 35.5 g/dL 02/29/2024 9:09 AM EST [facility] RDW 12.5 <=14.9 % 02/29/2024 9:09 AM EST [facility] Platelet 262 155 - 369 x10(3)/mcL 02/29/2024 9:09 AM EST [facility] MPV 9.5 8.8 - 12.5 fL 02/29/2024 9:09 AM EST [facility] Neut Percent 62.9 % 02/29/2024 9:09 AM EST [facility] Comment:Neutrophils equals s egs plus bands Imm Gran% 0.5 % 02/29/2024 9:09 AM EST [facility] Comment:Automated count of m etamyelocytes, myelocytes and promyelocytes. Lymph Percent 19.0 % 02/29/2024 9:09 AM EST [facility] Cascade Percent 9.8 % 02/29/2024 9:09 AM EST [facility] Eos Percent 6.3 % 02/29/2024 9:09 AM EST [facility] Baso Percent 1.5 % 02/29/2024 9:09 AM EST [facility] Neut # 3.7 1.6 - 6.1 x10(3)/[facility] 02/29/2024 9:09 AM EST [facility] Comment:Neutrophils equals s egs plus bands IMMGRAN# 0.0 0.0 - 0.1 x10(3)/mcL 02/29/2024 9:09 AM EST [facility] Comment:Automated count of m etamyelocytes, myelocytes and promyelocytes. An absolute IG <0.1 is reported as 0.0. Lymph # 1.1(L) 1.2 - 3.9 x10(3)/[facility] 02/29/2024 9:09 AM EST [facility] Cascade # 0.6 0.3 - 0.9 x10(3)/mcL 02/29/2024 9:09 AM EST [facility] Eos# 0.4 0.0 - 0.5 x10(3)/[facility] 02/29/2024 9:09 AM EST [facility] Baso # 0.1 0.0 - 0.1 x10(3)/[facility] 02/29/2024 9:09 AM EST [facility] Blood VENOUS BLOOD / Unknown Venipuncture / Unknown 02/29/2024 8:43 AM EST 02/29/2024 8:47 AM EST us Kristie Green APRN HEMATOLOGY ORDERABLES Final Re sult [facility] [address] [place] [address] , [place] [address] * CT ABD PEL ED FAST W CONTRAST (01/04/2024 1:05 PM EDT) Anatomical Region Laterality Modality Abdomen, Pelvis Computed Tomogra phy 01/04/2024 1:05 PM EDT Impressions 01/04/2024 1:43 PM EDT No acute abnormality of the abdomen or pelvis. - Note: Radiology results need to be interpreted within a comprehensive clinical context. If you have questions about the radiology report, please contact the office of the ordering clinician. Narrative 01/04/2024 1:[address] ABDOMEN AND PELVIS WITH CONTRAST (FAST), 01/04/2024 1:05 PM CLINICAL HISTORY: -R/O internal injury. COMPARISON: None. PROCEDURE COMMENTS: Multi-detector CT scanning of the abdomen and pelvis with multiplanar reformatting per expedited protocol. Isovue 370 IV contrast given as recorded in EPIC. Dose 1 : CT DLP Total : 605.59 mGycm DLP Spiral Max : 601.39 mGycm Maximum CTDI Vol : 12.01 mGy FINDINGS: LOWER THORAX: Lung bases unremarkable. ABDOMEN AND PELVIS: Liver, spleen, pancreas, kidneys, and adrenal glands unremarkable. No hydronephrosis. Unremarkable biliary system. Colonic diverticulosis. No bowel obstruction or acute inflammatory process. No evidence of appendicitis. No abnormal mass, fluid, or adenopathy in the pelvis. No acute osseous abnormality. Procedure Note Agusto Oh MD - 01/04/2024 CT ABDOMEN AND PELVIS WITH CONTRAST (FAST), 01/04/2024 1:05 PM CLINICAL HISTORY: -R/O internal injury. COMPARISON: None. PROCEDURE COMMENTS: Multi-detector CT scanning of the abdomen and pelviswith multiplanar reformatting per expedited protocol. Isovue 370 IV contrastgiven as recorded in EPIC. Dose 1 : CT DLP Total : 605.59 mGycm DLP Spiral Max : 601.39 mGycm Maximum CTDI Vol : 12.01 mGy FINDINGS: LOWER THORAX: Lung bases unremarkable. ABDOMEN AND PELVIS: Liver, spleen, pancreas, kidneys, and adrenal glands unremarkable. No hydronephrosis. Unremarkable biliary system. Colonic diverticulosis. No bowel obstruction or acute inflammatoryprocess. No evidence of appendicitis. No abnormal mass, fluid, or adenopathy in the pelvis. No acute osseous abnormality. IMPRESSION: No acute abnormality of the abdomen or pelvis. - Note: Radiology results need to be interpreted within a comprehensiveclinical context. If you have questions about the radiology report, please contactthe office of the ordering clinician. us Sandra Myers MD IM CT ORDERABLES Final R esult * URINALYSIS REFLEX (01/04/2024 12:14 PM EDT) UA Color Colorless 01/04/2024 12:26 PM EDT [facility] UA Appear Clear Clear 01/04/2024 12:26 PM EDT [facility] UA Glucose Negative Negative mg/dL 01/04/2024 12:26 PM EDT [facility] UA Ketones Negative Negative mg/dL 01/04/2024 12:26 PM EDT [facility] UA Blood Negative Negative 01/04/2024 12:26 PM EDT [facility] UA pH 6.0 5.0 - 8.0 pH 01/04/2024 12:26 PM EDT [facility] UA Protein Negative Negative mg/dL 01/04/2024 12:26 PM EDT [facility] UA Urobilinogen Normal <=1 mg/dL 12:26 PM EDT [facility] UA Bili Negative Negative 01/04/2024 12:26 PM EDT [facility] UA Nitrite Negative Negative 01/04/2024 12:26 PM EDT [facility] UA Leuk Est Negative Negative 01/04/2024 12:26 PM EDT [facility] UA Spec Grav 1.009 1.001 - 1.035 no units 01/04/2024 12:26 PM EDT [facility] Comment:Reference range jocelin d for random specimens only. Urine URINE SPECIMEN COLLECTION, CLEAN CATCH / Unknown 01/04/2024 12:14 PM EDT 01/04/2024 12:20 PM EDT us Sandra Myers MD URINE ORDERABLES Final Re sult [facility] [address] [facility], [place] [address] * EXTRA CATHERINE URINE CX (01/04/2024 12:14 PM EDT) Urine URINE SPECIMEN COLLECTION, CLEAN CATCH / Unknown 01/04/2024 12:14 PM EDT 01/04/2024 12:20 PM EDT Sandra Myers MD MICROBIOLOGY - GENERAL OR DERABLES Final Result Performing Organization Address City/[facility]/[place] [address] * (ABNORMAL) COMPREHENSIVE METABOLIC PANEL (01/04/2024 11:39 AM EDT) Sodium 139 136 - 145 mmol/L 01/04/2024 12:01 PM EDT [facility] Potassium 4.5 3.5 - 5.0 mmol/L 01/04/2024 12:01 PM EDT [facility] Chloride 105 98 - 107 mmol/L 01/04/2024 12:01 PM EDT [facility] Total CO2 23 22 - 29 mmol/L 01/04/2024 12:01 PM EDT [facility] Anion Gap 11 7 - 16 mmol/L 01/04/2024 12:01 PM EDT [facility] Calcium 9.1 8.8 - 10.4 mg/dL 01/04/2024 12:01 PM EDT [facility] Glucose Lvl 102(H) 70 - 99 mg/dL 01/04/2024 12:01 PM EDT [facility] BUN 18 8 - 23 mg/dL 01/04/2024 12:01 PM EDT [facility] Creatinine 1.19 0.67 - 1.30 mg/dL 01/04/2024 12:01 PM EDT [facility] Albumin 4.5 3.2 - 4.6 gm/dL 01/04/2024 12:01 PM EDT [facility] Total Protein 6.6 6.4 - 8.3 gm/dL 01/04/2024 12:01 PM EDT [facility] Bili Total 0.5 0.2 - 1.4 mg/dL 01/04/2024 12:01 PM EDT [facility] ALT 18 <=41 U/L 01/04/2024 12:01 PM EDT [facility] AST 24 <=40 U/L 01/04/2024 12:01 PM EDT [facility] Alk Phos 80 40 - 129 U/L 01/04/2024 12:01 PM EDT [facility] eGFR (CKD-EPIcr 2020) 68 >=60 mL/min/1.7 3 m2 01/04/2024 12:01 PM EDT [facility] Comment:Estimated GFR was ca lculated using the CKD-EPIcr (2020) equation refit without race. The equation is recommended by the National [employer] - [place] [employer] Neph[employer] Task Force. Blood VENOUS BLOOD / Unknown Venipuncture / Unknown 01/04/2024 11:39 AM EDT 01/04/2024 11:42 AM EDT us Sandra Myers MD CHEMISTRY ORDERABLES Romi l Result [facility] [address] [place] [id number] * SCANNED RHYTHM STRIPS (03/18/2021 10:15 PM EST) Only the most recent of2 resultswithin the time period is included. Anatomical Region Laterality Modality Other 03/18/2021 10:1 5 PM EST us Unknown Provider IMG ECG ORDERABLES Final Result * INTRAOP AIRWAY PLACEMENT (03/15/2021 11:19 AM EST) Narrative [facility] - 03/15/2021 11:19 AM EST Isaac Duque CRNA 03/15/2021 11:27 AM Intraop Airway Placement: Date/Time: 03/15/2021 11:19 AM Induction type: IV Mask size: Standard adult Pre-Oxygenation: Standard Mask ventilation: Easy mask ventilation Airway type: LMA Topical Anesthetic/Lubricant: Lubricant jelly Airway location: Oral Device size: 4 Secured by: Tape Measured from: Lips Placement verified: Auscultation, End tidal CO2 and Symmetric chest wall motion Condition: Atraumatic and Unchanged Insertion attempts: 1 Title: GROUP SALES COORDINATOR Ruddy Pearl IV, MD MA ANESTHESIA Final Re sult Performing Organization Address [facility] de Phone Number [address] [address] * CORONAVIRUS 2019 (03/11/2021 8:14 AM EST) [facility] CORONAVIRUS [id number] Not Detected Not Detected 03/11/2021 6:58 PM EST [employer] Comment: Caution should be exercised when interpreting a result of 'Not Detected'. A result of 'Not Detected' does not rule out COVID-19 and cannot be used as sole basis for treatment or patient management decisions. If COVID-19 is still suspected following a 'Not Detected' result, re-testing should be considered. This test is a nucleic acid amplification test intended for the qualitative detection of nucleic acid from the SARS-CoV-2 in upper respiratory samples collected from individuals suspected of COVID-19. Test is performed on the [employer] platform under the FDA's Emergency Use Authorization (EUA). [employer] Provider Fact Sheet: https://www.fda.gov/media/751052/download [employer] Patient Fact Sheet: https://www.fda.gov/media/730252/download Performed at [employer] [address] [place] [address]. [id number] [facility] [id number] Swab BOTH ANTERIOR NARES / Unknown 03/11/2021 8:14 AM EST 03/11/2021 8:14 AM EST us Jovi Naranjo MD MICROBIOLOGY - GENERAL ORDERABL ES Final Result Performing Organization Address [facility] Co de Phone Number [employer] [address] [place] [address], [place] [address] * INTRAOP AIRWAY PLACEMENT (03/23/2018 2:38 PM EST) Narrative [facility] - 03/23/2018 2:38 PM EST Kel Gallo CRNA 03/23/2018 2:38 PM Intraop Airway Placement: Date/Time: 03/23/2018 2:36 PM Induction type: IV Mask size: Standard adult Pre-Oxygenation: Standard Mask ventilation: Easy mask ventilation Mask ventilation improved by: Chinlift Airway type: LMA Topical Anesthetic/Lubricant: Lubricant jelly Airway location: Oral Device size: 5 Placement verified: Auscultation, End tidal CO2 and Symmetric chest wall motion Condition: Atraumatic and Unchanged Insertion attempts: 1 Attempt 1 by: Sabino Title: ORLY Procedure Note Kel Gallo CRNA - 03/23/2018 2:38 PM EST Intraop Airway Placement: Date/Time: 03/23/2018 2:36 PM Induction type: IV Mask size: Standard adult Pre-Oxygenation: Standard Mask ventilation: Easy mask ventilation Mask ventilation improved by: Chinlift Airway type: LMA Topical Anesthetic/Lubricant: Lubricant jelly Airway location: Oral Device size: 5 Placement verified: Auscultation, End tidal CO2 and Symmetric chestwall motion Condition: Atraumatic and Unchanged Insertion attempts: 1 Attempt 1 by: aSbino Title: ORLY Kel Gallo CRNA MA ANESTHESIA Final Result [facility] [address] [place] [address] * XR CHEST PA AND LATERAL (05/31/2012 9:52 AM EST) Anatomical Region Laterality Modality Chest Radiographic Catherine ging Impressions 06/01/2012 4:34 PM EST : 1. No acute radiographic abnormalities are identified in the chest. 2. Borderline cardiomegaly. 3. Mild indentation of right side of the trachea just above the level of the clavicular heads, could be secondary to a small paratracheal mass. CT neck with intravenous contrast is recommended for further evaluation. Gordo Duque MD. Narrative 06/01/2012 4:34 PM EST EXAMINATION: PA and Lateral Radiographs of the Chest dated 05/31/2012. HISTORY: 52 year-old male with cough. COMPARISON: No prior studies are available for comparison. FINDINGS: The lungs are clear. No pleural effusion or pneumothorax is identified. Borderline cardiomegaly. Mild indentation of right side of the trachea just above the level of the clavicular heads. No acute rib fractures are identified. Question of old, healed fractures of the left fifth and sixth ribs anterolaterally. Procedure Note Jaime Beavers MD - 06/01/2012 EXAMINATION: PA and Lateral Radiographs of the Chest dated 05/31/2012. HISTORY: 52 year-old male with cough. COMPARISON: No prior studies are available for comparison. FINDINGS: The lungs are clear. No pleural effusion or pneumothorax isidentified. Borderline cardiomegaly. Mild indentation of right side ofthe trachea just above the level of the clavicular heads. No acute ribfractures are identified. Question of old, healed fractures of the leftfifth and sixth ribs anterolaterally. IMPRESSION: 1. No acute radiographic abnormalities are identified in the chest. 2. Borderline cardiomegaly. 3. Mild indentation of right side of the trachea just above the level ofthe clavicular heads, could be secondary to a small paratracheal mass. CTneck with intravenous contrast is recommended for further evaluation. Gordo Duque MD. 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 08/28/2017 High cholesterol Pure hypercholesterolemia 08/28/2017 Insomnia, unspecified type 08/28/2017 Acute medial meniscus tear of right knee, subsequent encounter 03/23/2018 Tear of medial meniscus of right knee, current, unspecified tear type, subsequent encounter 01/16/2021 Preop testing Preoperative examination, unspecified 03/11/2021 Pre-op testing Preoperative examination, unspecified 03/11/2021 Encounter for laboratory testing for COVID-19 virus 03/11/2021 Tear of medial meniscus of right knee, current, unspecified tear type, subsequent encounter 03/15/2021 Acute anterior epistaxis 06/25/2023 Right-sided epistaxis Epistaxis 06/25/2023 Groin pain, left 01/04/2024 Left lower quadrant abdominal pain 01/04/2024 Acute left-sided low back pain with left-sided sciatica 01/04/2024 Preop testing Preoperative examination, unspecified 02/29/2024 Hypertension, unspecified type 02/29/2024 Osteoarthrosis, localized, primary, knee, right 02/29/2024 Osteoarthrosis, localized, primary, knee, right 03/15/2024 Right leg swelling 03/18/2024 Acute deep vein thrombosis (DVT) of tibial vein of right lower extremity (HCC) 03/19/2024 Tear of medial meniscus of right knee, current 03/15/2021 Care Teams Disability Liaison Officer Relationship Specialty Start Date End Date Alexander Swift [address] [place] [address] PCP - General Family Medicine 05/31/12
--- OUTSIDE RECORDS SUMMARY | 2024-12-21 12:21 | XMS_ITS | Referral Summary ---
Author Organization [facility] Address [address] [place] [address] Phone Care Team Providers Care Inter Com Servicer Name Role Phone Alexander Swift MD Primary Care Provider [phone] Dominic Marlow DPM Unavailable Encounters Date Type Department Care Team Description 11/09/2024 9:40 AM EDT Office Visit [facility] [address] [place] [address] Dominic Marlow, DPM History of transmetatarsal amputation of left foot (HCC) (Primary Dx); Crushing injury of left foot, sequela; Ulcer of left foot, with fat layer exposed (HCC); Gait abnormality from Last 3 Months Allergies No known active allergies Medications atorvastatin [...] and subcutaneous tissue Venous insufficiency (chronic) (peripheral) Immunizations Immunization Administration Dates Next Due Influenza [...] Mass Index 30.52 06/06/2020 8:11 AM EST Functional Status * Are you deaf or [...] 05/30/2019 8:41 AM Abdirahman Martinez, Registered Nurse Mental Status * Because of a physical, mental, or emotional condition, do you have serious difficulty concentrating, remembering, or making decisions? (5 years old or older) Answer Entry Date Author No 05/30/2019 8:41 AM Abdirahman Martinez, Registered Nurse Plan of Treatment Upcoming Encounters Date Type Department Care Team (Late st Contact Info) Description 02/08/2025 9:20 AM EDT Office Visit [facility] [address] [place] [address] Dominic Marlow DPM [address] [place] [address] Medical Devices Implanted Type Area Refrigerator Cabinetmaker Device Identifier Shelf Expiration Date Model / Serial / Lot Membrane Reg Clarix 1k 6.0x3.0 - [id number] Implanted:Qty: 1 on 03/14/2019 by Dominic Marlow DPM at [facility] Graft Left: Foot Theraskin Implanted:Qty: 1 on 01/10/2019 by Dominic Marlow DPM at [facility] Left: Foot LIFENET 09/12/2022 [id number] / [id number] / Theraskin Implanted:Qty: 1 on 01/10/2019 by Domniic Marlow DPM at [facility] Left: Foot LIFENET 04/26/2021 [id number] / [id number] / Theraskin Implanted:Qty: 1 on 03/14/2019 by Dominic Marlow DPM at [facility] Left: Foot LIFENET 09/12/2022 [id number] / [id number] / [place] [address] MEDICARE on file [facility] MCR SUPPLEMENT Member Subscriber Plan / Payer (Ef fective 2023-Present) Name:Jonathon Jiang Relation to Subscriber:Self Name:Jonathon Jiang Payer ID:[id number] (NAIC) Group ID:Not on file Type:Indemnity Address: [address] [address] [place] [address] Care Teams Inter Com Servicer Relationship Specialty Start Date End Date Alexander Swift MD PCP - General Family Medicine 12/10/18 Dominic Marlow DPM [address] [place] [address] Attending Physician Podiatry 05/18/23
--- NOTE | 2024-12-21 12:22 | XR_ITS ---
FINAL REPORT CLINICAL HISTORY: Nonspecific cough FINDINGS: PA and lateral views of the chest are obtained. There is no prior exam for comparison. The heart is borderline in size. The mediastinum is unremarkable. The lungs are clear. There is no pleural effusion, pneumothorax, or acute osseous abnormality. IMPRESSION: Borderline cardiomegaly; otherwise, no acute process. Reviewed, Interpreted and Dictated by Patria Rhodes MD Transcribed by Merline Stahl Authenticated and [facility]
--- OUTSIDE RECORDS SUMMARY | 2024-12-21 12:22 | XMS_ITS | Clinical Summary ---
Author Organization [facility] Address [address] [place] [address] Care Team Providers Care Counter Maker Name Role Phone Alexander Swift MD Primary Care Provider [phone] Source Comments This information has been disclosed to you from confidential records protectedfrom disclosure by state law. You shall make no further disclosure of thisinformation without the specific, written, and informed release of theindividual to whom it pertains, or as otherwise permitted by law. A generalauthorization for the release of medical or other information is not sufficientfor the purposes of therelease of HIV test results or diagnoses. [id number] Allergies No known active allergies Medications mirtazapine (REMERON) 15 MG tablet Take 15 mg by mouth at bedtime. Active PROCTOSOL HC 2.5 % rectal cream 10/07/2018 Acti ve mirtazapine (REMERON) 30 MG tablet 09/28/2018 Active simvastatin (ZOCOR) 40 MG tablet 09/28/2018 Active sulfamethoxazole -trimethoprim (BACTRIM DS) 800-160 mg per tabletIndication s:Left foot pain Take 1 tablet by mouth 2 times a day. 14 tablet 12/08/2018 Active Active Problems Problem Noted Date Diagnosed Date Crush injury of left foot 11/30/2018 Social History Tobacco Use Types Packs/Day Years Used Date Smoking Tobacco: Never Smokeless Tobacco: Never Alcohol Use Standard Drinks/Week Comments No 0 (1 standard drink = 0.6 oz pur e alcohol) PHQ-2 Answer Date Recorded PHQ-2 Score 0 01/26/2019 Sex and Gender Information Value Date Recorded Sex Assigned at Not on file Legal Sex Male 7:39 PM EDT Gender Identity Not on file Sexual Orientation Not on file Last Filed Vital Signs Vital Sign Reading Time Taken Comments Blood Pressure 161/97 11/26/2018 1:28 PM EDT Pulse 73 11/26/2018 1:28 PM EDT Temperature 36.5 C (97.7 F) 11/26/2018 1:28 PM EDT Respiratory Rate 18 11/26/2018 1:28 PM EDT Oxygen Saturation 95% 11/26/2018 1:28 PM EDT Inhaled Oxygen Concentration 95% 11/26/2018 1 :28 PM EDT Weight 102.1 kg (225 lb) 11/30/2018 10:36 AM EDT Height 182.9 cm (6') 11/30/2018 10:36 AM EDT Body Mass Index 30.52 11/30/2018 10:36 AM EDT Plan of Treatment Not [place] [address] [employer] [address] [place] [address] [employer] Advance Directives For more information, please contact: [phone] * Full Code (Latest Code Status on File) Date Activated Date Inactivated Comments 11/22/2018 12:46 AM 11/22/2018 7:59 PM Care Teams Counter Maker Relationship Specialty Start Date End Date Alexander Swift MD [address] [place] [id number] PCP - General Family Medicine 11/21/18
[2024-12-21 13:16] LABS: Hematocrit 42.2 % (42.0-52.0); Hemoglobin 13.8 g/dL (14.1-18.0); Immature Granulocytes % 0.3 %; Mean Corpuscular HGB Conc 32.7 g/dL (31.8-35.4); Mean Corpuscular Hemoglobin 29.2 pg (27.0-31.2); Mean Corpuscular Volume 89.2 fl (80-94); Nucleated Red Blood Cells % 0 %; Platelet Count 310 K/mm3 (142-424); Red Blood Count 4.73 M/mm3 (4.60-6.20); Red Cell Distribution Width-SD 40.2 fL; White Blood Count 6.3 K/mm3 (4.8-10.8)
[2024-12-21 13:36] LABS: Alanine Aminotransferase 21 U/L (12-78); Albumin Level 4.5 g/dl (3.5-5.0); Alkaline Phosphatase 74 U/L (38-126); Anion Gap 11.8 mEq/L (5-15); Aspartate Amino Transferase 34 U/L (17-59); Bilirubin,Direct 0.1 mg/dl (0.0-0.4); Bilirubin,Indirect 0.4 mg/dL (0.0-0.9); Bilirubin,Total 0.5 mg/dl (0.2-1.3); Bilirubin,Unconjugated 0.4 mg/dL (0.0-1.1); Blood Urea Nitrogen 18 mg/dl (9-20); Calcium 9.8 mg/dl (8.4-10.2); Carbon Dioxide 29 mmol/L (22.0-30.0); Chloride 104 mmol/L (98-107); Cholesterol 193 mg/dl (140-200); Creatinine,Serum 1.10 mg/dl (0.66-1.25); Estimated Glomerular Filt Rate 67 ml/min (>60); GFR (African American) 81 ML/MIN (>60); Glucose 90 mg/dl (74-100); HDL Cholesterol 59 mg/dl (40-60); Magnesium 1.8 mg/dl (1.6-2.3); Potassium 4.8 mmoL/L (3.5-5.1); Sodium 140 mmol/L (136-145); Total Protein,Serum 6.8 g/dl (6.3-8.2); Triglycerides 77 mg/dl (30-150)
[2024-12-21 13:41] LABS: C-Reactive Protein 2.2 mg/L (0-4)
[2024-12-21 13:51] LABS: Free T4 (Free Thyroxine) 0.92 ng/dl (0.78-2.19)
[2024-12-21 14:06] LABS: Thyroid Stimulating Hormone 5.91 uIU/mL (0.465-4.68)
== END 2024-12-21 23:59 | disposition home or self-care (01) ==
LOC: LAB 12:19
PROVIDERS: Internal Medicine Pulmonary Disease; PCP Family Medicine; Visit Provider Internal Medicine
DX: E78.2 Mixed hyperlipidemia (principal); I10 Essential (primary) hypertension; R05.8 Other specified cough; R06.09 Other forms of dyspnea; R55 Syncope and collapse; R07.89 Other chest pain; R94.31 Abnormal electrocardiogram [ECG] [EKG]
CPT/HCPCS: 36415; 71046; 80048; 80061; 80076; 82565; 83735; 84439; 84443; 84520; 85025; 86140; 93225; 93227

== ENCOUNTER 2024-12-28 07:46 | Outpatient (CLI) | payer MEDICARE, SELFPAY ==
--- OUTSIDE RECORDS SUMMARY | 2024-12-28 07:48 | XMS_ITS | Continuity of Care Document ---
Author Organization [facility][1] DIA U S Address [address] [place] [address] [place] [address] Phone Care Team Providers Care Field Artillery Operations Specialist Name Role Phone Alexander Swift Primary Care Provider [phone] Encounters Date Type Department Care Team Description 03/19/2024 Travel 03/19/2024 1:19 PM EST - 03/19/2024 2:18 PM EST Emergency [facility] [address] [place] [address] Lisa Cornejo MD Acute deep vein thrombosis (DVT) of tibial vein of right lower extremity (HCC) (Primary Dx) Discharge Disposition: Home or Self Care 03/19/2024 Telephone [facility] Nurse Now [address] [place] [phone] Natty Barron RN Results 03/18/2024 9:40 AM EST - 03/18/2024 11:59 PM EST Hospital Encounter [facility] [address] [place] [address] Jovi Naranjo MD Right leg swelling Discharge Disposition: Home or Self Care 03/15/2024 9:23 AM EST - 03/15/2024 11:59 PM EST Hospital Encounter [facility] [address] [place] [address] Jovi Naranjo MD Discharge Disposition: Home or Self Care 03/15/2024 8:45 AM EST Ancillary Procedure [facility] [address] [place] [address] Jovi Naranjo MD 03/15/2024 8:40 AM EST Ancillary Procedure [facility] [address] [place] [address] Jovi Naranjo MD 03/15/2024 11:30 AM EST - 03/15/2024 1:35 PM EST Surgery [facility] [address] [place] [address] Jovi Naranjo MD ARTHROPLASTY, KNEE, TOTAL, OPEN 03/15/2024 11:28 AM EST Anesthesia Event [facility] [address] [place] [address] Nasim Wallis, Kristie Lewis, DIRECTOR OF GROUP SALES 03/15/2024 8:34 AM EST - 03/15/2024 4:47 PM EST Hospital Encounter [facility] [address] [place] [address] Jovi Naranjo MD Discharge Disposition: Home or Self Care 02/29/2024 Travel 02/29/2024 7:38 AM EST - 02/29/2024 11:59 PM EST Hospital Encounter [facility] PRE-ADMIT TESTING [facility] [place] [address] Preop testing (Primary Dx); Hypertension, unspecified type; Osteoarthrosis, localized, primary, knee, right Discharge Disposition: Home or Self Care 01/04/2024 11:06 AM EDT - 01/04/2024 2:17 PM EDT Emergency [facility] [place] [address] Sandra Myers MD Groin pain, left (Primary Dx); Left lower quadrant abdominal pain; Acute left-sided low back pain with left-sided sciatica Discharge Disposition: Home or Self Care 06/25/2023 Travel 06/25/2023 12:08 PM EDT - 06/25/2023 1:41 PM EDT Emergency [facility] [place] [address] Ernesto Krause MD Acute anterior epistaxis (Primary Dx); Right-sided epistaxis Discharge Disposition: Home or Self Care 03/15/2021 Travel 03/15/2021 11:25 AM EST - 03/15/2021 12:10 PM EST Surgery [facility] [address] [place] [address] Jovi Naranjo MD KNEE ARTHROSCOPY MENISCECTOMY/REPAIR (ALSO COVERS ARTHROSCOPIC INCISION AND DRAINAGE/DEBRIDEMENT ) 03/15/2021 11:07 AM EST Anesthesia Event [facility] [address] [place] [address] Ruddy Pearl IV, MD Roman, Brion W, MD 03/15/2021 9:54 AM EST - 03/15/2021 12:54 PM EST Hospital Encounter [facility] [address] [place] [address] Jovi Naranjo MD Discharge Disposition: Home or Self Care 03/11/2021 Orders Only [facility] Anest[facility] [address] [place] [address] Gustavo Bernard MD Preop testing (Primary Dx) 03/11/2021 Travel 03/11/2021 8:23 AM EST - 03/11/2021 11:59 PM EST Hospital Encounter [facility] [address] [place] [address] Covid19, [facility] Pre-op testing; Encounter for laboratory testing for COVID-19 virus Discharge Disposition: Home or Self Care 03/06/2021 Travel 01/16/2021 Orders Only Adult Med [address] [place] [address] [address] [place] [id number] Jorge Treviño MA Tear of medial meniscus of right knee, current, unspecified tear type, subsequent encounter (Primary Dx) 03/23/2018 2:05 PM EST - 03/23/2018 2:50 PM EST Surgery [facility] [address] [place] [address] Jovi Naranjo MD KNEE ARTHROSCOPY MENISCECTOMY/REPAIR (ALSO COVERS ARTHROSCOPIC INCISION AND DRAINAGE/DEBRIDEMENT ) 03/23/2018 2:27 PM EST Anesthesia Event [facility] [address] [place] [address] Gustavo Bernard MD Nayak, Prashant, MD 03/23/2018 12:33 PM EST - 03/23/2018 4:25 PM EST Hospital Encounter [facility] [address] [facility] [address] [place] [address] Jovi Naranjo MD Discharge Disposition: Home or Self Care 08/28/2017 1:30 PM EDT Office Visit [facility] [address] [facility] [address] [place] [address] Gamaliel Brush MD Spigelian hernia (Primary Dx); [...] (01/16/2021): Added automatically from request for surgery [id number] High cholesterol 08/28/2017 Insomnia 08/28/2017 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 Family History Medical History Relation Name Comments ALS Father Heart Attack Mother Anesth Problems Neg Hx Relation Name Status Comments Father Mother Social History Smoking Status as of 12/28/2024 Tobacco Use Types Packs/Day Years Used Date [...] on file Medical Devices Implanted Type Area Inside Sales Trainer Device Identifier Shelf Expiration Date Model / Serial / Lot Cement Refobacin 1x40 Gm Hvisc Bn Gent Lf - [id number] Implanted:Qty : 1 on 03/15/2024 by Jovi Naranjo MD at [facility] Right: Knee SETH:SETH [id number] 05/13/2026 [id number] / / [id number] Stem Tib Exten 14mm Persn Str Tapr Lt Kn - [id number] Implanted:Qty : 1 on 03/15/2024 by Jovi Naranjo MD at [facility] Right: Knee SETH:SETH [id number] 02/12/2034 [id number] / / [id number] Patlr 38x9.5mm Desmond Persn Pe Yanique-E Ps Kn - [id number] Implanted:Qty : 1 on 03/15/2024 by Jovi Naranjo MD at [facility] Right: Knee SETH:SETH 05/25/2028 [id number] / / [id number] Comp Fem Sz9 Std Persn Rt Kn Ps Desmond Cocr Por - [id number] Implanted:Qty : 1 on 03/15/2024 by Jovi Naranjo MD at [facility] Right: Knee SETH:SETH 10/31/2033 [id number] / / [id number] Baseplate Tib Sz-G Stm Rt Kn Desmond Persn Vera Tiv Rohan 5d - [id number] Implanted:Qty : 1 on 03/15/2024 by Jovi Naranjo MD at [facility] Right: Knee SETH:SETH [id number] 12/18/2033 [id number] / / [id number] Liner Tib Sz Gh/6-9 12mm Persn Rt Kn Art Ps Fx Bear Yanique-E - [id number] Implanted:Qty : 1 on 03/15/2024 by Jovi Naranjo MD at [facility] Right: Knee SETH:SETH [id number] 07/29/2028 [id number] / / [id number] Procedures Procedure Name Priority Date/Time Associated Diagnosis Comments [facility] US LOWER EXTREMITY VENOUS RIGHT STAT 03/18/2024 11:12 AM EST Right leg swelling INTRAOP AIRWAY PLACEMENT Routine 03/15/2024 11:33 AM EST [place] ARTHRP KNE CONDYLE&PLATU MEDIAL&LAT COMPARTMENTS 03/15/2024 11:28 [...] AIRWAY PLACEMENT (03/15/2024 11:33 AM EST) Narrative [facility] - 03/15/2024 11:33 AM EST Citlaly [...] motion Condition: Atraumatic Insertion attempts: 1 Title: SUMMER CHILD CAREGIVER us Nasim Wallis DO [place] ANESTHESIA Final Result Performing Organization Address [facility] Co de Phone Number [facility] [address] [place] [address] * Peripheral Block by Anesthesia (03/15/2024 10:33 AM EST) Narrative [facility] - 03/15/2024 10:33 AM EST Nasim [...] visualized. Ultrasound image documentation is attached/scanned in Tower [employer] chart. No anatomical pathology noted during block placement.) Ultrasound probe: linear Ultrasound needle approach: in-plane Assessment Block success: complete Heart rate change: no Blood aspirated: no Paresthesia pain: none Resistance on injection: normal Intermittent incremental injection LA at 5ml Ultrasound Image of the block is attached/scanned to the epic chart. Nasim Wallis DO ANESTHESIA ORDERABLES Final R esult Performing Organization Address [facility] Co de Phone Number [facility] [address] [place] [id number] * US ANES GUIDANCE FOR NERVE BLOCK [...] 02/29/2024 9:09 AM EST [facility] Comment:Neutrophils equals s egs plus bands Imm Gran% 0.5 % 02/29/2024 9:09 AM EST [facility] Comment:Automated count of m etamyelocytes, myelocytes and promyelocytes. Lymph Percent 19.0 % 02/29/2024 9:09 AM EST [facility] [place] Percent 9.8 % 02/29/2024 9:09 AM EST [facility] Eos Percent 6.3 % 02/29/2024 9:09 AM EST [facility] Baso Percent 1.5 % 02/29/2024 9:09 AM EST [facility] Neut # 3.7 1.6 - 6.1 x10(3)/[facility] 02/29/2024 9:09 AM EST [facility] Comment:Neutrophils equals s egs plus bands IMMGRAN# 0.0 0.0 - 0.1 x10(3)/mcL 02/29/2024 9:09 AM EST [facility] Comment:Automated count of m etamyelocytes, myelocytes and promyelocytes. An absolute IG <0.1 is reported as 0.0. Lymph # 1.1(L) 1.2 - 3.9 x10(3)/[facility] 02/29/2024 9:09 AM EST [facility] [place] # 0.6 0.3 - 0.9 x10(3)/mcL 02/29/2024 9:09 AM EST [facility] Eos# 0.4 0.0 - 0.5 x10(3)/[facility] 02/29/2024 9:09 AM EST [facility] Baso # 0.1 0.0 - 0.1 x10(3)/[facility] 02/29/2024 9:09 AM EST [facility] Blood VENOUS BLOOD / Unknown Venipuncture / Unknown 02/29/2024 8:43 AM EST 02/29/2024 8:47 AM EST us Kristie Green APRN HEMATOLOGY ORDERABLES Final Re sult [facility] [address] [place] [address] , [place] [address] * CT ABD PEL ED FAST W [...] 01/04/2024 12:26 PM EDT [facility] UA Appear Clear Clear 01/04/2024 12:26 PM EDT [facility] UA Glucose Negative Negative mg/dL 01/04/2024 12:26 PM EDT [facility] UA Ketones Negative Negative mg/dL 01/04/2024 12:26 PM EDT [facility] UA Blood Negative Negative 01/04/2024 12:26 PM EDT [facility] UA pH 6.0 5.0 - 8.0 pH 01/04/2024 12:26 PM EDT [facility] UA Protein Negative Negative mg/dL 01/04/2024 12:26 PM EDT [facility] UA Urobilinogen Normal <=1 mg/dL 12:26 PM [...] 01/04/2024 12:26 PM EDT [facility] Comment:Reference range jocelin d for random specimens only. Urine URINE SPECIMEN COLLECTION, CLEAN CATCH / Unknown 01/04/2024 12:14 PM EDT 01/04/2024 12:20 PM EDT us Sandra Myers MD URINE ORDERABLES Final Re sult [facility] [address] [facility], [place] [address] * EXTRA CATHERINE URINE CX (01/04/2024 12:14 PM EDT) Urine URINE SPECIMEN COLLECTION, CLEAN CATCH / Unknown 01/04/2024 12:14 PM EDT 01/04/2024 12:20 PM EDT Sandra Myers MD MICROBIOLOGY - GENERAL OR DERABLES Final Result Performing Organization Address City/[facility]/[place] [address] * (ABNORMAL) COMPREHENSIVE METABOLIC PANEL (01/04/2024 11:39 AM EDT) Sodium 139 136 - 145 mmol/L 01/04/2024 12:01 PM EDT [facility] Potassium 4.5 3.5 - 5.0 mmol/L 01/04/2024 12:01 PM EDT [facility] Chloride 105 98 - 107 mmol/L 01/04/2024 12:01 PM EDT [facility] Total CO2 23 22 - 29 mmol/L 01/04/2024 12:01 PM EDT [facility] Anion Gap 11 7 - 16 mmol/L 01/04/2024 12:01 PM EDT [facility] Calcium 9.1 8.8 - 10.4 mg/dL 01/04/2024 12:01 PM EDT [facility] Glucose Lvl 102(H) 70 - 99 mg/dL 01/04/2024 12:01 PM EDT [facility] BUN 18 8 - 23 mg/dL 01/04/2024 12:01 PM EDT [facility] Creatinine 1.19 0.67 - 1.30 mg/dL 01/04/2024 12:01 PM EDT [facility] Albumin 4.5 3.2 - 4.6 gm/dL 01/04/2024 12:01 PM EDT [facility] Total Protein 6.6 6.4 - 8.3 gm/dL 01/04/2024 12:01 PM EDT [facility] Bili Total 0.5 0.2 - 1.4 mg/dL 01/04/2024 12:01 PM EDT [facility] ALT 18 <=41 U/L 01/04/2024 12:01 PM EDT [facility] AST 24 <=40 U/L 01/04/2024 12:01 PM EDT [facility] Alk Phos 80 40 - 129 U/L 01/04/2024 12:01 PM EDT [facility] eGFR (CKD-EPIcr 2020) 68 >=60 mL/min/1.7 3 m2 01/04/2024 12:01 PM EDT [facility] Comment:Estimated GFR was ca lculated using the CKD-EPIcr (2020) equation refit without race. The equation is recommended by the National Kidney Foundation - [place] Society of Nephrology Task Force. Blood VENOUS BLOOD / Unknown Venipuncture / Unknown 01/04/2024 11:39 AM EDT 01/04/2024 11:42 AM EDT us Sandra Myers MD CHEMISTRY ORDERABLES Romi l Result [facility] [address] [place] [id number] * SCANNED RHYTHM STRIPS (03/18/2021 10:15 PM EST) Only the most recent of2 resultswithin the time period is included. Anatomical Region Laterality Modality Other 03/18/2021 10:1 5 PM EST us Unknown Provider IMG ECG ORDERABLES Final Result * INTRAOP AIRWAY PLACEMENT (03/15/2021 11:19 AM EST) Narrative [facility] - 03/15/2021 11:19 AM EST Isaac [...] Atraumatic and Unchanged Insertion attempts: 1 Title: SUMMER CHILD CAREGIVER Ruddy Pearl IV, MD [place] ANESTHESIA Final Re sult Performing Organization Address [facility] de Phone Number [address] [address] * CORONAVIRUS 2019 (03/11/2021 8:14 AM EST) [facility] CORONAVIRUS [id number] Not Detected Not Detected 03/11/2021 6:58 PM EST [facility] Comment: Caution should be exercised when interpreting [...] of COVID-19. Test is performed on the [employer] platform under the FDA's Emergency Use Authorization (EUA). [employer] Provider Fact Sheet: https://www.fda.gov/media/540511/download [employer] Patient Fact Sheet: https://www.fda.gov/media/709730/download Performed at [facility] [address] [place] [address]. [id number] [facility] [id number] Swab BOTH ANTERIOR NARES / Unknown 03/11/2021 8:14 AM EST 03/11/2021 8:14 AM EST us Jovi Naranjo MD MICROBIOLOGY - GENERAL ORDERABL ES Final Result Performing Organization Address [facility] Co de Phone Number [facility] [address] [place] [address], [place] [address] * INTRAOP AIRWAY PLACEMENT (03/23/2018 2:38 PM EST) Narrative [facility] - 03/23/2018 2:38 PM EST Kel [...] 1 Attempt 1 by: Sabino Title: ORLY Kel Gallo CRNA [place] ANESTHESIA Final Result [facility] [address] [place] [address] * XR CHEST PA AND LATERAL (05/31/2012 [...] further evaluation. Gordo Duque MD. Alexander Swift [facility] ORDERAB LES Final Result Visit [...] of right knee, current 03/15/2021 Care Teams Field Artillery Operations Specialist Relationship Specialty Start Date End Date Alexander Swift [address] [place] [address] PCP - General Family Medicine 05/31/12
--- OUTSIDE RECORDS SUMMARY | 2024-12-28 07:48 | XMS_ITS | Clinical Summary ---
Author Organization [facility] Address [address] [place] [address] Care Team Providers Care Child Adolescent Care Name Role Phone Alexander Swift MD Primary Care Provider [phone] Source Comments This information has been disclosed [...] therelease of HIV test results or diagnoses. [id number] Allergies No known active allergies Medications [...] of Treatment Not [place] [address] [employer] [address] [place] [address] [employer] Advance Directives For more information, please contact: [phone] * Full Code (Latest Code Status on File) Date Activated Date Inactivated Comments 11/22/2018 12:46 AM 11/22/2018 7:59 PM Care Teams Child Adolescent Care Relationship Specialty Start Date End Date Alexander Swift MD [address] [place] [id number] PCP - General Family Medicine 11/21/18
[2024-12-28] MEDS: ALBUTEROL 0.083% 2.5 MG/3 ML NEB IH (08:55)
== END 2024-12-28 23:59 | disposition home or self-care (01) ==
LOC: RT 07:47
PROVIDERS: PCP Family Medicine; Visit Provider Internal Medicine
DX: R55 Syncope and collapse (principal); R94.31 Abnormal electrocardiogram [ECG] [EKG]; I10 Essential (primary) hypertension; J18.9 Pneumonia, unspecified organism; E78.5 Hyperlipidemia, unspecified; R94.2 Abnormal results of pulmonary function studies
CPT/HCPCS: 87070; 87077; 87205; 94060; 94618; 94726; 94729

== ENCOUNTER 2024-12-30 09:48 | Outpatient (CLI) | payer MEDICARE, SELFPAY ==
--- OUTSIDE RECORDS SUMMARY | 2024-11-09 09:40 | XMS_ITS | Encounter Summary ---
Author Organization [facility] Address [address] [place] [address] [place] [address] Phone Care Team Providers Care Head Bone Grinder Name Role Phone Alexander Swift MD Primary Care Provider [phone]- [phone] Dominic Marlow DPM Unavailable Reason for Visit * Reason [...] Description 11/09/2024 9:40 AM EDT Office Visit [facility] [address] [facility] [place] [address] Dominic Marlow, DPM [address] [facility] [place] [address] History of transmetatarsal amputation of [...] were not included. Dr. Dominic Marlow DPM [facility] [address] [place] [address] Patient Name: Jonathon Jiang Age: [age] year [...] is dealing with his custom brace with [employer] which is in process. ALLERGIES No Known [...] Neuro:Protective sensation is absent using the 5.07 [place] [employer]ovana Monofilament Wire to all locations bilateral [...] History of transmetatarsal amputation of left foot ([facility]) Z89.432 2. Crushing injury of left foot, sequela S97.82XS 3. Ulcer of left foot, with fat layer exposed ([facility]) L97.522 4. Gait abnormality R26.9 PLAN: 1. [...] contact the author as some errors in ballistician may have occurred. documented in this encounter Plan of Treatment Upcoming Encounters Date Type Department Care Team (Late st Contact Info) Description 02/08/2025 9:20 AM EDT Office Visit [facility] [address] [place] [address] Dominic Marlow DPM [address] [facility] [place], [place] [phone] documented as of this encounter Visit Diagnoses Diagnosis History of transmetatarsal amputation of left foot (HCC)- Primary Crushing injury of left foot, sequela Ulcer of left foot, with fat layer exposed (HCC) Gait abnormality Abnormality of gait documented in this encounter Care Teams Head Bone Grinder Relationship Specialty Start Date End Date Alexander Swift MD PCP - General Family Medicine 12/10/18 Dominic Marlow DPM [address] [place] [address] Attending Physician Podiatry 05/18/23 documented as of this encounter
[2024-12-28 11:41] VITALS: BMI 31.9
--- OUTSIDE RECORDS SUMMARY | 2024-12-30 09:50 | XMS_ITS | Continuity of Care Document ---
Author Organization [facility] DIA [facility] S Address [address] [place] [address] Phone Care Team Providers Care Pure Culture Operator Name Role Phone Alexander Swift Primary Care Provider [phone] Encounters Date Type Department Care Team Description 03/19/2024 Travel 03/19/2024 1:19 PM EST - 03/19/2024 2:18 PM EST Emergency [facility] [address] [place] [address] Lisa Cornejo MD Acute deep vein thrombosis (DVT) of tibial vein of right lower extremity (HCC) (Primary Dx) Discharge Disposition: Home or Self Care 03/19/2024 Telephone [facility] Nurse Now [address] [place] [phone] Natty Barron RN Results 03/18/2024 9:40 AM EST - 03/18/2024 11:59 PM EST Hospital Encounter [facility] [address] [place] [address] Jovi Naranjo MD Right leg swelling Discharge Disposition: Home or Self Care 03/15/2024 9:23 AM EST - 03/15/2024 11:59 PM EST Hospital Encounter [facility] [address] [place] [address] Jovi Naranjo MD Discharge Disposition: Home or Self Care 03/15/2024 8:45 AM EST Ancillary Procedure [facility] [address] [place] [address] Jovi Naranjo MD 03/15/2024 8:40 AM EST Ancillary Procedure [facility] [address] [place] [address] Jovi Naranjo MD 03/15/2024 11:30 AM EST - 03/15/2024 1:35 PM EST Surgery [facility] [address] [place] [address] Jovi Naranjo MD ARTHROPLASTY, KNEE, TOTAL, OPEN 03/15/2024 11:28 AM EST Anesthesia Event [facility] [address] [place] [address] Nasim Wallis, Kristie Lewis, DRUPAL WEB DEVELOPER 03/15/2024 8:34 AM EST - 03/15/2024 4:47 PM EST Hospital Encounter [facility] [address] [place] [address] Jovi Naranjo MD Discharge Disposition: Home or Self Care 02/29/2024 Travel 02/29/2024 7:38 AM EST - 02/29/2024 11:59 PM EST Hospital Encounter [facility] PRE-ADMIT TESTING [facility] [place] [address] Preop testing (Primary Dx); Hypertension, unspecified type; Osteoarthrosis, localized, primary, knee, right Discharge Disposition: Home or Self Care 01/04/2024 11:06 AM EDT - 01/04/2024 2:17 PM EDT Emergency [facility] [place] [address] Sandra Myers MD Groin pain, left (Primary Dx); Left lower quadrant abdominal pain; Acute left-sided low back pain with left-sided sciatica Discharge Disposition: Home or Self Care 06/25/2023 Travel 06/25/2023 12:08 PM EDT - 06/25/2023 1:41 PM EDT Emergency [facility] [place] [address] Ernesto Krause MD Acute anterior epistaxis (Primary Dx); Right-sided epistaxis Discharge Disposition: Home or Self Care 03/15/2021 Travel 03/15/2021 11:25 AM EST - 03/15/2021 12:10 PM EST Surgery [facility] [address] [place] [address] Jovi Naranjo MD KNEE ARTHROSCOPY MENISCECTOMY/REPAIR (ALSO COVERS ARTHROSCOPIC INCISION AND DRAINAGE/DEBRIDEMENT ) 03/15/2021 11:07 AM EST Anesthesia Event [facility] [address] [place] [address] Ruddy Pearl IV, MD Roman, Brion W, MD 03/15/2021 9:54 AM EST - 03/15/2021 12:54 PM EST Hospital Encounter [facility] [address] [place] [address] Jovi Naranjo MD Discharge Disposition: Home or Self Care 03/11/2021 Orders Only [facility] Anesthesia [address] [place] [address] Gustavo Bernard MD Preop testing (Primary Dx) 03/11/2021 Travel 03/11/2021 8:23 AM EST - 03/11/2021 11:59 PM EST Hospital Encounter [facility] [address] [place] [address] Covid19, [facility] Pre-op testing; Encounter for laboratory testing for COVID-19 virus Discharge Disposition: Home or Self Care 03/06/2021 Travel 01/16/2021 Orders Only Adult Med [address] [place] [address] [address] [place] [id number] Jorge Treviño MA Tear of medial meniscus of right knee, current, unspecified tear type, subsequent encounter (Primary Dx) 03/23/2018 2:05 PM EST - 03/23/2018 2:50 PM EST Surgery [facility] [address] [place] [address] Jovi Naranjo MD KNEE ARTHROSCOPY MENISCECTOMY/REPAIR (ALSO COVERS ARTHROSCOPIC INCISION AND DRAINAGE/DEBRIDEMENT ) 03/23/2018 2:27 PM EST Anesthesia Event [facility] [address] [place] [address] Gustavo Bernard MD Nayak, Prashant, MD 03/23/2018 12:33 PM EST - 03/23/2018 4:25 PM EST Hospital Encounter [facility] [address] [facility] [address] [place] [address] Jovi Naranjo MD Discharge Disposition: Home or Self Care 08/28/2017 1:30 PM EDT Office Visit [facility] [address] [facility] [address] [place] [address] Gamaliel Brush MD Spigelian hernia (Primary Dx); [...] (01/16/2021): Added automatically from request for surgery [id number] High cholesterol 08/28/2017 Insomnia 08/28/2017 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 Family History Medical History Relation Name Comments ALS Father Heart Attack Mother Anesth Problems Neg Hx Relation Name Status Comments Father Mother Social History Smoking Status as of 12/30/2024 Tobacco Use Types Packs/Day Years Used Date [...] on file Medical Devices Implanted Type Area Identification And Records Commander Device Identifier Shelf Expiration Date Model / Serial / Lot Cement Refobacin 1x40 Gm Hvisc Bn Gent Lf - [id number] Implanted:Qty : 1 on 03/15/2024 by Jovi Naranjo MD at [facility] Right: Knee SETH:SETH [id number] 05/13/2026 [id number] / / [id number] Stem Tib Exten 14mm Persn Str Tapr Lt Kn - [id number] Implanted:Qty : 1 on 03/15/2024 by Jovi Naranjo MD at [facility] Right: Knee SETH:SETH [id number] 02/12/2034 [id number] / / [id number] Patlr 38x9.5mm Desmond Persn Pe Yanique-E Ps Kn - [id number] Implanted:Qty : 1 on 03/15/2024 by Jovi Naranjo MD at [facility] Right: Knee SETH:SETH 05/25/2028 [id number] / / [id number] Comp Fem Sz9 Std Persn Rt Kn Ps Desmond Cocr Por - [id number] Implanted:Qty : 1 on 03/15/2024 by Jovi Naranjo MD at [facility] Right: Knee SETH:SETH 10/31/2033 [id number] / / [id number] Baseplate Tib Sz-G Stm Rt Kn Desmond Persn Vera Tiv Rohan 5d - [id number] Implanted:Qty : 1 on 03/15/2024 by Jovi Naranjo MD at [facility] Right: Knee SETH:SETH [id number] 12/18/2033 [id number] / / [id number] Liner Tib Sz Gh/6-9 12mm Persn Rt Kn Art Ps Fx Bear Yanique-E - [id number] Implanted:Qty : 1 on 03/15/2024 by Jovi Naranjo MD at [facility] Right: Knee SETH:SETH [id number] 07/29/2028 [id number] / / [id number] Procedures Procedure Name Priority Date/Time Associated Diagnosis Comments [facility] US LOWER EXTREMITY VENOUS RIGHT STAT 03/18/2024 11:12 AM EST Right leg swelling INTRAOP AIRWAY PLACEMENT Routine 03/15/2024 11:33 AM EST SD ARTHRP KNE CONDYLE&PLATU MEDIAL&LAT COMPARTMENTS 03/15/2024 11:28 [...] common femoral vein. Narrative Procedure Note Jr Brunnre MD - 03/18/2024 IMPRESSION Conclusions * There [...] AIRWAY PLACEMENT (03/15/2024 11:33 AM EST) Narrative [facility] - 03/15/2024 11:33 AM EST Citlaly [...] motion Condition: Atraumatic Insertion attempts: 1 Title: MECHANIC FIELD SERVICE us Nasim Wallis DO SD ANESTHESIA Final Result Performing Organization Address [facility] Co de Phone Number [facility] [address] [place] [address] * Peripheral Block by Anesthesia (03/15/2024 10:33 AM EST) Narrative [facility] - 03/15/2024 10:33 AM EST Nasim [...] visualized. Ultrasound image documentation is attached/scanned in Cen[facility] chart. No anatomical pathology noted during block placement.) Ultrasound probe: linear Ultrasound needle approach: in-plane Assessment Block success: complete Heart rate change: no Blood aspirated: no Paresthesia pain: none Resistance on injection: normal Intermittent incremental injection LA at 5ml Ultrasound Image of the block is attached/scanned to the epic chart. Nasim Wallis DO ANESTHESIA ORDERABLES Final R esult Performing Organization Address [facility] Co de Phone Number [facility] [address] [place] [phone] * US ANES GUIDANCE FOR NERVE BLOCK [...] 02/29/2024 9:09 AM EST [facility] Comment:Neutrophils equals s egs plus bands Imm Gran% 0.5 % 02/29/2024 9:09 AM EST [facility] Comment:Automated count of m etamyelocytes, myelocytes and promyelocytes. Lymph Percent 19.0 % 02/29/2024 9:09 AM EST [facility] Saunders Percent 9.8 % 02/29/2024 9:09 AM EST [facility] Eos Percent 6.3 % 02/29/2024 9:09 AM EST [facility] Baso Percent 1.5 % 02/29/2024 9:09 AM EST [facility] Neut # 3.7 1.6 - 6.1 x10(3)/[facility] 02/29/2024 9:09 AM EST [facility] Comment:Neutrophils equals s egs plus bands IMMGRAN# 0.0 0.0 - 0.1 x10(3)/mcL 02/29/2024 9:09 AM EST [facility] Comment:Automated count of m etamyelocytes, myelocytes and promyelocytes. An absolute IG <0.1 is reported as 0.0. Lymph # 1.1(L) 1.2 - 3.9 x10(3)/[facility] 02/29/2024 9:09 AM EST [facility] Saunders # 0.6 0.3 - 0.9 x10(3)/mcL 02/29/2024 9:09 AM EST [facility] Eos# 0.4 0.0 - 0.5 x10(3)/[facility] 02/29/2024 9:09 AM EST [facility] Baso # 0.1 0.0 - 0.1 x10(3)/[facility] 02/29/2024 9:09 AM EST [facility] Blood VENOUS BLOOD / Unknown Venipuncture / Unknown 02/29/2024 8:43 AM EST 02/29/2024 8:47 AM EST us Kirstie Green APRN HEMATOLOGY ORDERABLES Final Re sult [facility] [address] [place] [address] , [place] [address] * CT ABD PEL ED FAST W [...] 01/04/2024 12:26 PM EDT [facility] UA Appear Clear Clear 01/04/2024 12:26 PM EDT [facility] UA Glucose Negative Negative mg/dL 01/04/2024 12:26 PM EDT [facility] UA Ketones Negative Negative mg/dL 01/04/2024 12:26 PM EDT [facility] UA Blood Negative Negative 01/04/2024 12:26 PM EDT [facility] UA pH 6.0 5.0 - 8.0 pH 01/04/2024 12:26 PM EDT [facility] UA Protein Negative Negative mg/dL 01/04/2024 12:26 PM EDT [facility] UA Urobilinogen Normal <=1 mg/dL 12:26 PM [...] 01/04/2024 12:26 PM EDT [facility] Comment:Reference range jocelin d for random specimens only. Urine URINE SPECIMEN COLLECTION, CLEAN CATCH / Unknown 01/04/2024 12:14 PM EDT 01/04/2024 12:20 PM EDT us Sandra Myers MD URINE ORDERABLES Final Re sult [facility] [address] [facility], [place] [address] * EXTRA CATHERINE URINE CX (01/04/2024 12:14 PM EDT) Urine URINE SPECIMEN COLLECTION, CLEAN CATCH / Unknown 01/04/2024 12:14 PM EDT 01/04/2024 12:20 PM EDT Sandra Myers MD MICROBIOLOGY - GENERAL OR DERABLES Final Result Performing Organization Address City/[facility]/[place] [address] * (ABNORMAL) COMPREHENSIVE METABOLIC PANEL (01/04/2024 11:39 AM EDT) Sodium 139 136 - 145 mmol/L 01/04/2024 12:01 PM EDT [facility] Potassium 4.5 3.5 - 5.0 mmol/L 01/04/2024 12:01 PM EDT [facility] Chloride 105 98 - 107 mmol/L 01/04/2024 12:01 PM EDT [facility] Total CO2 23 22 - 29 mmol/L 01/04/2024 12:01 PM EDT [facility] Anion Gap 11 7 - 16 mmol/L 01/04/2024 12:01 PM EDT [facility] Calcium 9.1 8.8 - 10.4 mg/dL 01/04/2024 12:01 PM EDT [facility] Glucose Lvl 102(H) 70 - 99 mg/dL 01/04/2024 12:01 PM EDT [facility] BUN 18 8 - 23 mg/dL 01/04/2024 12:01 PM EDT [facility] Creatinine 1.19 0.67 - 1.30 mg/dL 01/04/2024 12:01 PM EDT [facility] Albumin 4.5 3.2 - 4.6 gm/dL 01/04/2024 12:01 PM EDT [facility] Total Protein 6.6 6.4 - 8.3 gm/dL 01/04/2024 12:01 PM EDT [facility] Bili Total 0.5 0.2 - 1.4 mg/dL 01/04/2024 12:01 PM EDT [facility] ALT 18 <=41 U/L 01/04/2024 12:01 PM EDT [facility] AST 24 <=40 U/L 01/04/2024 12:01 PM EDT [facility] Alk Phos 80 40 - 129 U/L 01/04/2024 12:01 PM EDT [facility] eGFR (CKD-EPIcr 2020) 68 >=60 mL/min/1.7 3 m2 01/04/2024 12:01 PM EDT [facility] Comment:Estimated GFR was ca lculated using the CKD-EPIcr (2020) equation refit without race. The equation is recommended by the National Kidney Foundation - [place] Society of Nephrology Task Force. Blood VENOUS BLOOD / Unknown Venipuncture / Unknown 01/04/2024 11:39 AM EDT 01/04/2024 11:42 AM EDT us Sandra Myers MD CHEMISTRY ORDERABLES Romi l Result [facility] [address] [place] [phone] * SCANNED RHYTHM STRIPS (03/18/2021 10:15 PM EST) Only the most recent of2 resultswithin the time period is included. Anatomical Region Laterality Modality Other 03/18/2021 10:1 5 PM EST us Unknown Provider IMG ECG ORDERABLES Final Result * INTRAOP AIRWAY PLACEMENT (03/15/2021 11:19 AM EST) Narrative [facility] - 03/15/2021 11:19 AM EST Isaac [...] Atraumatic and Unchanged Insertion attempts: 1 Title: MECHANIC FIELD SERVICE Ruddy Pearl IV, MD [place] ANESTHESIA Final Re sult Performing Organization Address [facility] de Phone Number [address] [address] * CORONAVIRUS 2019 (03/11/2021 8:14 AM EST) [facility] CORONAVIRUS [id number] Not Detected Not Detected 03/11/2021 6:58 PM EST [facility] Comment: Caution should be exercised when interpreting [...] of COVID-19. Test is performed on the Pogoapp platform under the FDA's Emergency Use Authorization (EUA). [facility] Provider Fact Sheet: https://www.fda.gov/media/910716/download Cuciniale Patient Fact Sheet: https://www.fda.gov/media/801450/download Performed at [facility] [address] [place] [address]. [address] [facility] [id number] Swab BOTH ANTERIOR NARES / Unknown 03/11/2021 8:14 AM EST 03/11/2021 8:14 AM EST us Jovi Naranjo MD MICROBIOLOGY - GENERAL ORDERABL ES Final Result Performing Organization Address [facility] Co de Phone Number [facility] [address] [place] [address], [place] [address] * INTRAOP AIRWAY PLACEMENT (03/23/2018 2:38 PM EST) Narrative [facility] - 03/23/2018 2:38 PM EST Kel [...] by: Sabino Title: ORLY Kel Gallo CRNA SD ANESTHESIA Final Result [facility] [address] [place] [address] * XR CHEST PA AND LATERAL (05/31/2012 [...] further evaluation. Gordo Duque MD. Alexander Swift [facility] ORDERAB LES Final Result Visit [...] of right knee, current 03/15/2021 Care Teams Pure Culture Operator Relationship Specialty Start Date End Date Alexander Swift [address] [place] [address] PCP - General Family Medicine 05/31/12
--- OUTSIDE RECORDS SUMMARY | 2024-12-30 09:51 | XMS_ITS | Encounter Summary ---
Author Organization [facility] Address [address] [place] [address] [place] [address] Phone Care Team Providers Care Roll Winder Name Role Phone Alexander Swift MD Primary Care Provider [phone] Dominic Marlow DPM Unavailable Reason for Referral [...] Date Expiration Date Visits Requested Visits Authorized [id number] Pending Review Specialty Services Required 4 02/28/2025 1 1 Scheduling Instructions [employer] [address] [place], [place] [address] [facility] [address], [place], [place] [address] Comments Rx: 1 molded custom AFO left lower extremity with forefoot filler Encounter Details Date Type Department Care Team (Late st Contact Info) Description 02/29/2024 Orders Only [place] [address] [address] [place] [id number] Dominic Marlow, MIKOM [address] [place], [place] [id number] History of transmetatarsal amputation of left foot (Primary Dx); Gait abnormality; Crushing injury of left lower leg, subsequent encounter; Crushing injury of left foot, sequela; Ulcer of left foot, with fat layer exposed; Pre-ulcerative calluses Social History Tobacco Use Types [...] Author No 05/30/2019 8:41 AM Abdirahman Martinez, Danielle Nurse * Do you have difficulty dressing [...] Description 02/08/2025 9:20 AM EDT Office Visit [facility] [address] [place] [address] Dominic Marlow DPM [address] [facility] [place], [place] [phone] Scheduled Referrals Name Type Priority Associated Diagnoses Orde r Schedule AMB REFERRAL TO ORTHOTICS Outpatient Referral Routine History of transmetatarsal amputation of left foot Gait abnormality Crushing injury of left foot, sequela Ulcer of left foot, with fat layer exposed Pre-ulcerative calluses Expected: 03/01/2024 (Approximate), Expires: 02/28/2025 documented as of this encounter Visit Diagnoses Diagnosis History of transmetatarsal amputation of left foot (HCC)- Primary Gait abnormality Abnormality of gait Crushing injury of left lower leg, subsequent encounter Crushing injury of left foot, sequela Ulcer of left foot, with fat layer exposed (HCC) Pre-ulcerative calluses Corns and callosities documented in this encounter Care Teams Roll Winder Relationship Specialty Start Date End Date Alexander Swift MD PCP - General Family Medicine 12/10/18 Dominic Marlow DPM [address] [place] [address] Attending Physician Podiatry 05/18/23 documented as of this encounter
--- OUTSIDE RECORDS SUMMARY | 2024-12-30 09:51 | XMS_ITS | Clinical Summary ---
Author Organization [facility] Address [address] [place] [address] Care Team Providers Care Protective Clothing Issuer Name Role Phone Alexander Swift MD Primary Care Provider [phone] Source Comments This information has been disclosed [...] therelease of HIV test results or diagnoses. [id number] Allergies No known active allergies Medications [...] of Treatment [place] [address] [place] [address] [employer] Advance Directives For more information, please contact: [phone] * Full Code (Latest Code Status on File) Date Activated Date Inactivated Comments 11/22/2018 12:46 AM 11/22/2018 7:59 PM Care Teams Protective Clothing Issuer Relationship Specialty Start Date End Date Alexander Swift MD [address] [place] [id number] PCP - General Family Medicine 11/21/18
--- OUTSIDE RECORDS SUMMARY | 2024-12-30 09:51 | XMS_ITS | Clinical Summary ---
Author Organization [facility] Address [address] [place] [address] Phone Care Team Providers Care Stained Glass Glazier Helper Name Role Phone Alexander Swift MD Primary Care Provider [phone] Dominic Marlow DPM Unavailable Allergies No known [...] Description 11/09/2024 9:40 AM EDT Office Visit [facility] [address] [place] [address] Dominic Marlow DPM History of [...] Description 02/08/2025 9:20 AM EDT Office Visit [facility] [address] [place] [address] Dominic Marlow DPM [address] [facility] [place] [address] Health Maintenance Due Date Last [...] this topic Medical Devices Implanted Type Area Military Lawyer Device Identifier Shelf Expiration Date Model / Serial / Lot Membrane Reg Clarix 1k 6.0x3.0 - [id number] Implanted:Qty: 1 on 03/14/2019 by Dominic Marlow DPM at [facility] Graft Left: Foot Theraskin Implanted:Qty: 1 on 01/10/2019 by Dominic Marlow DPM at [facility] Left: Foot LIFENET 09/12/2022 103TSXL / [id number] / Theraskin Implanted:Qty: 1 on 01/10/2019 by Dominic Marlow DPM at [facility] Left: Foot LIFENET 04/26/2021 101TSS / [id number] / Theraskin Implanted:Qty: 1 on 03/14/2019 by Dominic Marlow DPM at [facility] Left: Foot LIFENET 09/12/2022 103TSXL / [id number] / Insurance MEDICARE on file [employer] MCR SUPPLEMENT Advance Directives Documents on File Type Date Recorded Patient Reject Opener Expl anation Advance Directives(Healthcar e Power of Business Management Intern)/Living Will/MOLST 07/13/2019 7:20 AM * Full Code [...] 6:11 PM 12/21/2018 8:08 PM Care Teams Stained Glass Glazier Helper Relationship Specialty Start Date End Date Alexander Swift MD PCP - General Family Medicine 12/10/18 Dominic Marlow DPM [address] [place] [address] Attending Physician Podiatry 05/18/23
--- OUTSIDE RECORDS SUMMARY | 2024-12-30 09:51 | XMS_ITS | Referral Summary ---
Author Organization [facility] Address [address] [place] [address] Phone Care Team Providers Care Mechanical Assembler Name Role Phone Alexander Swift MD Primary Care Provider [phone] Dominic Marlow DPM Unavailable Encounters Date Type Department Care Team Description 11/09/2024 9:40 AM EDT Office Visit [facility] [address] [place] [address] Dominic Marlow, DPM History of [...] Description 02/08/2025 9:20 AM EDT Office Visit Pending sale to [facility] [address] [place] [address] Dominic Marlow DPM [address] [facility] [place] [address] Medical Devices Implanted Type Area Operations Supervisor 2Nd Shift Device Identifier Shelf Expiration Date Model / Serial / Lot Membrane Reg Clarix 1k 6.0x3.0 - [id number] Implanted:Qty: 1 on 03/14/2019 by Dominic Marlow DPM at [facility] Graft Left: Foot Theraskin Implanted:Qty: 1 on 01/10/2019 by Dominic Marlow DPM at [facility] Left: Foot LIFENET 09/12/2022 [id number] / [id number] / Theraskin Implanted:Qty: 1 on 01/10/2019 by Dominic Marlow DPM at [facility] Left: Foot LIFENET 04/26/2021 101TSS / [id number] / Theraskin Implanted:Qty: 1 on 03/14/2019 by Dominic Marlow DPM at [facility] Left: Foot LIFENET 09/12/2022 [id number] / [id number] / [place] [id number] MEDICARE on file [facility] MCR SUPPLEMENT Member Subscriber Plan / Payer (Ef fective 2023-Present) Name:Jonathon Jiang Relation to Subscriber:Self Name:Jonathon Jiang Payer ID:[id number] (NAIC) Group ID:Not on file Type:Indemnity Address: [address] [address] [place] [phone] Care Teams Mechanical Assembler Relationship Specialty Start Date End Date Alexander Swift MD PCP - General Family Medicine 12/10/18 Dominic Marlow DPM [address] [place] [address] Attending Physician Podiatry 05/18/23
[2024-12-30 10:15] VITALS: BP 142/84; PULSE 43; RESP 18; TEMP 36.1; O2SAT 97; BMI 31.9
[2024-12-30 10:30] VITALS: BP 161/88; PULSE 47; RESP 18; TEMP 36.1; O2SAT 97
[2024-12-30] MEDS: NITROGLYCERIN 0.4MG SL TABLET SL (10:30)
[2024-12-30 10:33] VITALS: BP 141/79; PULSE 46; RESP 18; TEMP 36.1; O2SAT 97
[2024-12-30 10:36] VITALS: BP 138/74; PULSE 48; RESP 18; TEMP 36.1; O2SAT 97
[2024-12-30 10:45] VITALS: BP 137/83; PULSE 52; RESP 18; TEMP 36.1; O2SAT 97
[2024-12-30] MEDS: 0.9 % SODIUM CHLORIDE 50 ML VIAL IV (10:53)
[2024-12-30] MEDS: IOPAMIDOL-370 (76%);100ML BOTTLE 80 ML IV (10:53)
[2024-12-30] MEDS: SODIUM CHLORIDE 0.9% 10ML SYR (RAD ONLY) 10 ML IV (10:53)
--- NOTE | 2024-12-30 11:00 | CT_ITS ---
APPROVED REPORT Center Receptionist: CLINICAL INDICATION Chest Pain TECHNIQUE Image Acquisition: A 128 slice MDCT scanner ([employer]) was used for data acquisition. A noncontrast coronary calcium scan was performed. A CT attenuation threshold of 130 Hounsfield units (HU) was used for the detection of calcium in contiguous voxels of 1 sq mm in area to be counted as individual lesions. Bolus tracking in the ascending aorta with a threshold of 180 HU was performed. Immediately afterwards, ECG synchronized cardiac CT was then performed from the cardiac base to apex using retrospective gating with ECG tube current modulation. A total of 85 mL of Isovue 370 mg/mL contrast medium was administered at 5 mL/sec followed by a saline flush using a biphasic injection protocol. A tube voltage of 120 KVp was used. The average heart rate at the time of acquisition was 45 bpm and regular. Image Reconstruction Transaxial images were reconstructed at 0.67 mm slide thickness. Data was reviewed interactively on an advanced workstation capable of 2 and 3-dimensional displays in all conventional reconstruction formats, including multiplanar reformations, maximum intensity projections, curved multiplanar reformations, and volume rendered reconstructions. When applicable, selected routine images describing the relevant coronary anatomy and pathology were saved and sent to PACS. Complications None Technical Quality Overall image quality was fair. Coronary artery opacification was adequate. Total DLP (Dose-Length Product) is 1474.3 mGy-cm. The reported value represents the total of one or more individual components during the CT acquisition of this date and at this time, and as such, the same value may appear in more than one CT report depending on the interpreting/reporting physicians. COMPARISON None FINDINGS CT Coronary Calcium Scoring LMA (Left Main Artery) = 0 LAD (Left Anterior Descending) = 145 LCX (Left Coronary Circumflex) = 0 RCA (Right Coronary Artery) = 5 Total Calcium Score = 150 using the AJ-130 method. The observed calcium score of 150 is at 60th percentile for subjects of the same age, sex, and race/ethnicity. The interpretation of the calcium heart score is based on the following continuum*: 0 = no calcified plaque detected (risk of coronary artery disease is very low ??? less than 5%) 1-10 = calcium detected in extremely minimal levels (risk of coronary diseases is still low ??? less than 10%) 11-100 = mild levels of plaque detected with certainty (mild or minimal narrowing of heart arteries is likely) 101-400 = definite,at least moderate levels of plaque detected (relatively high risk of a heart attack within 3-5 years) >401-999 = extensive levels of plaque detected (high risk of heart attack, high levels of vascular disease are present, high likelihood of at least one significant coronary narrowing) *The calcium heart score quantifies the burden of coronary calcification/plaque in the coronary arteries. The calcium heart score is not able to evaluate the presence or burden of non-calcified (i.e. soft) plaque. There is no identifiable calcification in the aortic valve, mitral annulus or mitral valve, pericardium, or myocardium. Coronary CT Angiography The coronary arterial system is right dominant. Quantitative Stenosis Grading: Left Main (LM): The left main originates normally from the left sinus of Valsalva. The LM bifurcates into the left anterior descending artery and left circumflex artery. The LM is patent with no evidence of atherosclerosis. Left Anterior Descending (LAD) and Diagonal Branches: The LAD gives off 3 diagonal branch(es). There is mixed calcified/noncalcified plaque in the mid LAD segment with up to 50 to 70% luminal stenosis. There is no evidence of LAD-myocardial bridge. Left Circumflex (LCX) and Obtuse Marginals (OM): The LCX gives off 1 Obtuse Marginal (OM) branch(es). The LCX and its branches are patent with no evidence of atherosclerosis. Right Coronary Artery (RCA): The RCA originates normally from the right sinus of Valsalva. There is calcified plaque in the proximal RCA segment, with no evidence of luminal stenosis. Non-Coronary Cardiac Findings: Analysis of the left ventricular (LV) structure and function was performed after 3-D reconstruction of the LV from axial images, with user-corrected automatic contouring for assessment of LV volumes and user-defined reconstruction from oblique planes for measurement of 3-D cardiac structure and function. -The left ventricle systolic function is normal. -There is no left atrial appendage filling defect. Two right pulmonary veins and two left pulmonary veins drain normally into the left atrium. -No pericardial thickening or calcification. -Central and branch pulmonary arteries in the [id number] are unremarkable. -Thoracic aorta within the visualized thoracic aortic-branches in the [id number] is unremarkable. Extracardiac Structures No significant extra-cardiac findings. Note, however, that this study is focused on the cardiac findings. IMPRESSION -Fair image quality. -Presence of coronary calcification with an Agatston score = 150 using the AJ-130 method. -The observed calcium score of 150 is at 60th percentile for subjects of the same age, sex, and race/ethnicity. - Moderate atherosclerotic plaque in the mid LAD segment, with possible evidence of significant flow-limiting atherosclerosis in the corresponding region. -CAD-RADS 3. Management recommendations per ACC/AHA guidelines*, as clinically appropriate. *Recommendations: CAD RADS 0: Reassurance. Consider non-atherosclerotic causes of chest pain. CAD RADS 1: Consider non-atherosclerotic causes of chest pain. Consider preventive therapy and risk factor modification. CAD RADS 2: Consider non-atherosclerotic causes of chest pain. Consider preventive therapy and risk factor modification, particularly for patients with nonobstructive plaque in multiple segments. CAD RADS 3: Consider further functional testing. Consider symptom-guided anti-ischemic and preventive pharmacotherapy as well as risk factor modification per published guideline statements. CAD RADS 4A: Consider further functional testing or invasive coronary angiography with revascularization per published guideline statements. Consider symptom-guided anti-ischemic and preventive pharmacotherapy as well as risk factor modification per published guideline statements. CAD RADS 4B: Invasive coronary angiography recommended with revascularization per published guideline statements. Consider symptom-guided anti-ischemic and preventive pharmacotherapy as well as risk factor modification per published guideline statements. CAD RADS 5: Consider invasive angiography and/or viability assessment with revascularization per published guideline statements. Consider symptom-guided anti-ischemic and preventive pharmacotherapy as well as risk factor modification per published guideline statements. CRITICAL RESULT None COMMUNICATION Per this written report The coronary and cardiac findings of this CCTA were reviewed, reported, and signed by Eliezer Jaramillo MD ([employer]ant) Conclusion Electronically signed by : Patricia Jaramillo MD 01/02/2025 13:46:34
--- NOTE | 2024-12-30 13:45 | CA_ITS ---
APPROVED REPORT EXAM: Comprehensive 2D, Doppler, and color-flow Echocardiogram Adult Daycare Coordinator: Karen Ray RVT Ht: 6 ft 0 in Wt: 229lbs BSA: 2.26 BP: 177/83 mmHg Indications: CHEST PAIN,ABNORMAL EKG 2D Dimensions LA Volume 46.50 mL LA Volume Index 20.58 mL/m2 (M/F) 16-34 M-Mode Dimensions RVDd 2.96 cm (0.9-2.6) LA Diam 4.38 cm (1.9-4.0) LVDd 5.55 cm (3.5-5.7) LVDs 3.51 cm (3.5-5.7) IVSd 1.38 cm (0.6-1.1) PWd 0.71 cm (0.6-1.1) EF (Teich) 66.00% FS 36.80% EDV (Teich) 150.50 mL TAPSE 3.06 (<1.7) ESV (Teich) 51.20 mL LV Diastology E Decel Time 150 (160-240 msec) E/A Ratio 1.3 Aortic Valve GUME Index 1.38 cm2/m2 AoV Peak Polo. 144.0 (50-130 cm/s) AO Peak GR. 8.30 mmHg AO Mean GR. 4.30 (<5 mmHg) AO VTI 35.3 (18-25 cm) GUME (VTI) 3.19 (2.5-4.5 cm2) Mitral Valve MV E Max Polo. 63.0 (40-130 cm/s) MV A Velocity 49.0 (40-130 cm/s) E/A Ratio 1.28 MV PHT 44.0 ms Pulmonary Valve PV Peak Velocity 61.0 (50-150 cm/s) Left Ventricle The left ventricle is normal size. Left ventricular systolic function is normal. The left ventricular ejection fraction is within the normal range. There is increased left ventricular wall thickness. There is normal LV segmental wall motion. The left ventricular diastolic function is normal. LVEF is 55% Right Ventricle The right ventricle is mildly dilated. The right ventricular systolic function is normal. Atria The left atrium size is normal. The right atrium size is normal. There is no color Doppler evidence of interatrial shunt. Aortic Valve The aortic valve is mildly thickened. There is no hemodynamically significant aortic valvular stenosis. Trace aortic regurgitation is present. Mitral Valve The mitral valve is normal in structure. No evidence of mitral valve stenosis. Trace mitral regurgitation is present. Tricuspid Valve The tricuspid valve leaflets are thin and pliable. Trace tricuspid regurgitation. There is insufficient TR jet to estimate RVSP. Pulmonic Valve The pulmonary valve is grossly normal in structure. Trace pulmonic valve regurgitation is present. Great Vessels The aortic root is normal in size. IVC is normal in size and collapses >50% with inspiration. Pericardium There is no pericardial effusion. Other Information Study Quality: Technically Difficult Conclusion Normal biventricular systolic function. Mild RV dilation. No significant valvular stenosis or regurgitation. Electronically signed by : Patricia Jaramillo MD 01/01/2025 18:58:50
== END 2024-12-30 23:59 | disposition home or self-care (01) ==
PROVIDERS: PCP Family Medicine; Visit Provider Internal Medicine
DX: I11.9 Hypertensive heart disease without heart failure (principal); E78.5 Hyperlipidemia, unspecified; I25.10 Atherosclerotic heart disease of native coronary artery without angina pectoris; R55 Syncope and collapse; R05.9 Cough, unspecified; R94.31 Abnormal electrocardiogram [ECG] [EKG]
CPT/HCPCS: 75574; 93306; Q9967

== ENCOUNTER 2025-02-27 12:28 | Outpatient (CLI) | payer MEDICARE, SELFPAY ==
[2025-02-27 13:53] LABS: Free T4 (Free Thyroxine) 1.41 ng/dl (0.78-2.19)
[2025-02-27 14:07] LABS: Thyroid Stimulating Hormone 1.77 uIU/mL (0.465-4.68)
[2025-02-28 15:12] LABS: Antinuclear Antibodies (ANA) Negative (Negative)
== END 2025-02-27 23:59 | disposition home or self-care (01) ==
LOC: LAB 12:30
PROVIDERS: Internal Medicine; PCP Family Medicine; Visit Provider Internal Medicine Pulmonary Disease
DX: E78.5 Hyperlipidemia, unspecified (principal); I10 Essential (primary) hypertension; J98.4 Other disorders of lung; J30.9 Allergic rhinitis, unspecified
CPT/HCPCS: 36415; 82785; 84439; 84443; 86003; 86200